=== PATIENT | female | born 1970 | race African-American/Black ===

== ENCOUNTER 2017-12-09 20:40 | Inpatient (IN) | payer MEDICAID ==
[~2017-12-09] VITALS: Ht 160 cm; Wt 63.6 kg
[2017-12-09 21:41] LABS: BASOPHILS % 1.1 % (0.0-2.0); EOSINOPHILS % 1.8 % (0.0-5.0); HEMOGLOBIN. 11.6 g/dL (12.0-16.0); LYMPHOCYTES % 38.5 % (20.0-50.0); MEAN CORPUSCULAR HEMOGLOBIN 29.1 pg (28.0-32.0); MEAN CORPUSCULAR VOLUME 85.4 fL (81.0-99.0); MEAN PLATELET VOLUME 7.3 fl (7.4-10.4); MONOCYTES % 7.3 % (2.0-8.0); NEUTROPHILS % 51.3 % (40.0-76.0); PLATELET 223 x1000/uL (130-400); RED BLOOD CELL COUNT 3.98 mill/uL (4.2-5.4); RED CELL DISTRIBUTION WIDTH 16.6 % (11.6-14.6)
[2017-12-09 21:42] LABS: INR 1.1; PROTHROMBIN TIME 11.2 sec (9.4-11.6)
[2017-12-09 22:02] LABS: CARBON DIOXIDE 29 mEq/L (21-32); CHLORIDE 98 mEq/L (98-107); TROPONIN I < 0.02 ng/mL (0.00-0.04)
[2017-12-09] MEDS ORDERED: POTASSIUM CHLORIDE 20MEQ TABLET SR PO ONE (22:30)
[2017-12-09] MEDS ORDERED: ASPIRIN 325MG EC TABLET PO ONE (22:45)
[2017-12-09] MEDS ORDERED: MORPHINE SULFATE 4 MG/ML CPJ (NOT FOR IM USE) IV ONE (23:30)
[2017-12-10] MEDS ORDERED: ONDANSETRON HCL 4MG/2ML VIAL IV ONE (04:00)
[2017-12-10 08:00] VITALS: BP 168/85
[2017-12-10] MEDS ORDERED: ASPI-1159 PO (08:57)
[2017-12-10] MEDS ORDERED: HYDR100T26 PO (08:57)
[2017-12-10] MEDS ORDERED: AMLO10TA80 PO (08:57)
[2017-12-10] MEDS ORDERED: METO-539 PO (08:57)
[2017-12-10] MEDS ORDERED: CLONIDINE 0.1MG TABLET PO PRN (09:15)
[2017-12-10] MEDS ORDERED: ONDANSETRON HCL 4MG/2ML VIAL IV PRN (09:15)
[2017-12-10] MEDS ORDERED: MORPHINE SULFATE 4 MG/ML CPJ (NOT FOR IM USE) IV PRN (09:15)
[2017-12-10] MEDS: ASPIRIN 81MG TABLET PO SCH (10:14)
[2017-12-10] MEDS: AMLODIPINE 10MG TABLET PO SCH (10:19)
[2017-12-10 10:50] VITALS: BP 168/85
[2017-12-10 12:00] VITALS: BP 138/71
[2017-12-10] MEDS: POTASSIUM CHLORIDE 20MEQ TABLET SR PO SCH (12:38)
[2017-12-10] MEDS: PANTOPRAZOLE 40MG DR TABLET PO SCH (12:38)
[2017-12-10] MEDS: HYDRALAZINE HCL 50MG TABLET PO SCH ×2 (14:13→22:02)
[2017-12-10] MEDS: CLONIDINE 0.1MG TABLET PO SCH ×2 (14:13→22:02)
[2017-12-10] MEDS: HYDROCODONE/ACETAMINOPHEN 5/325MG TABLET PO PRN ×2 (14:26→21:16)
[2017-12-10 16:00] VITALS: BP 124/58
[2017-12-10 20:00] VITALS: BP 113/67
[2017-12-10] MEDS: METOPROLOL TARTRATE 50MG TABLET PO SCH (21:07)
[2017-12-11] VITALS: BP 123/74
[2017-12-11] MEDS: HYDROCODONE/ACETAMINOPHEN 5/325MG TABLET PO PRN ×2 (03:12→09:35)
[2017-12-11 04:00] VITALS: BP 126/66
[2017-12-11] MEDS: PANTOPRAZOLE 40MG DR TABLET PO SCH (07:02)
[2017-12-11] MEDS: CLONIDINE 0.1MG TABLET PO SCH (07:02)
[2017-12-11] MEDS: HYDRALAZINE HCL 50MG TABLET PO SCH (07:02)
[2017-12-11 07:37] VITALS: BP 157/80
[2017-12-11] MEDS: METOPROLOL TARTRATE 50MG TABLET PO SCH (09:00)
[2017-12-11] MEDS: POTASSIUM CHLORIDE 20MEQ TABLET SR PO SCH (09:32)
[2017-12-11] MEDS: AMLODIPINE 10MG TABLET PO SCH (09:33)
[2017-12-11] MEDS: ASPIRIN 81MG TABLET PO SCH (09:33)
[2017-12-11] MEDS ORDERED: REGADENOSON 0.4 MG/5 ML IV NR (11:00)
[2017-12-11 12:00] VITALS: BP 115/59
[2017-12-11] MEDS ORDERED: HYDR-4001 PO (12:05)
[2017-12-11] MEDS ORDERED: CLONIDINE 0.2MG TABLET PO SCH (14:00)
[2017-12-11 14:29] VITALS: BP 115/59
== END 2017-12-11 17:27 | disposition home or self-care (01) | DRG 203 ==
LOC: ER 21:11 → 6WST 22:38 → EDBEDREQ 22:44
PROVIDERS: ADMIT Internal Medicine; ATTEND Internal Medicine
DX: M94.0 Chondrocostal junction syndrome [Tietze] (principal); Z93.0 Tracheostomy status; N18.6 End stage renal disease; I12.0 Hypertensive chronic kidney disease with stage 5 chronic kidney disease or end stage renal disease; R07.89 Other chest pain; I25.2 Old myocardial infarction; K21.9 Gastro-esophageal reflux disease without esophagitis; I25.10 Atherosclerotic heart disease of native coronary artery without angina pectoris; E87.6 Hypokalemia; D63.8 Anemia in other chronic diseases classified elsewhere; Z86.73 Personal history of transient ischemic attack (TIA), and cerebral infarction without residual deficits; Z95.1 Presence of aortocoronary bypass graft; Z99.2 Dependence on renal dialysis
CPT/HCPCS: 36415; 71045; 80048; 80053; 83880; 84484; 85025; 85610; 93005; 93306; 96374; 96375; 99285; J2270; J2405

== ENCOUNTER 2018-10-09 06:48 | Inpatient (IN) | payer MEDICAID ==
[~2018-10-09] VITALS: Ht 160 cm; Wt 80.7 kg
[~2018-10-09 06:48] MED LIST: AMLO10TA80 PO; ASPI-1159 PO; HYDR-4001 PO; HYDR100T26 PO; METO-539 PO
[2018-10-09 07:46] LABS: EOSINOPHILS % 12.8 % (0.0-5.0); HEMATOCRIT. 24.2 % (36.0-48.0); HEMOGLOBIN. 8.1 g/dL (12.0-16.0); LYMPHOCYTES % 25.9 % (20.0-50.0); MEAN CORPUSCULAR HEMOGLOBIN 30.6 pg (28.0-32.0); MEAN PLATELET VOLUME 7.2 fl (7.4-10.4); MONOCYTES % 7.7 % (2.0-8.0); NEUTROPHILS % 52.6 % (40.0-76.0); PLATELET 171 x1000/uL (130-400); RED BLOOD CELL COUNT 2.63 mill/uL (4.2-5.4); RED CELL DISTRIBUTION WIDTH 15.9 % (11.6-14.6)
[2018-10-09 07:54] LABS: CHLORIDE 105 mEq/L (98-107); INR 1.1; PROTHROMBIN TIME 11.1 sec (9.1-11.1)
[2018-10-09] MEDS ORDERED: ASPIRIN 81MG TABLET PO ONE (08:15)
[2018-10-09] MEDS ORDERED: ONDANSETRON HCL 4MG/2ML INJ IV PRN (09:15)
[2018-10-09] MEDS ORDERED: LABETALOL 5MG/ML SYR 20 MG/4 ML SYRINGE IV ONE (09:15)
[2018-10-09] MEDS ORDERED: ACETAMINOPHEN 325MG TABLET PO PRN (09:15)
[2018-10-09] MEDS: NIFEDIPINE XL 60MG TAB PO SCH (09:15)
[2018-10-09] MEDS: LOSARTAN POTASSIUM 100 MG TABLET PO SCH (09:15)
[2018-10-09 09:34] LABS: CREATINE KINASE MB FRACTION 1.4 ng/mL (0.5-3.6)
[2018-10-09] MEDS: SEVELAMER CARBONATE 800 MG TABLET PO SCH ×2 (13:00→18:31)
[2018-10-09] MEDS: HYDROCODONE/ACETAMINOPHEN 5/325MG TABLET PO PRN ×2 (15:30→18:31)
[2018-10-09 17:01] VITALS: BP 156/90
[2018-10-09 17:30] VITALS: BP 156/90
[2018-10-09 20:00] VITALS: BP 219/107
[2018-10-09] MEDS ORDERED: NIFEDIPINE XL 60MG TAB PO NR (21:00)
[2018-10-09] MEDS ORDERED: LOSARTAN POTASSIUM 100 MG TABLET PO NR (21:00)
[2018-10-09] MEDS: METOPROLOL TARTRATE 50MG TABLET PO SCH (21:33)
[2018-10-09] MEDS: DIPHENHYDRAMINE 50MG/ML VIAL IV PRN (21:34)
[2018-10-10] VITALS: BP 160/89
[2018-10-10] MEDS: CLONIDINE 0.1MG TABLET PO PRN (03:28)
[2018-10-10] MEDS: HYDROCODONE/ACETAMINOPHEN 5/325MG TABLET PO PRN ×2 (03:29→14:20)
[2018-10-10 04:00] VITALS: BP 152/75
[2018-10-10 07:39] LABS: BASOPHILS % 1.1 % (0.0-2.0); EOSINOPHILS % 13.4 % (0.0-5.0); HEMATOCRIT. 23.9 % (36.0-48.0); HEMOGLOBIN. 8.1 g/dL (12.0-16.0); LYMPHOCYTES % 32.9 % (20.0-50.0); MEAN CORPUSCULAR VOLUME 91.8 fL (81.0-99.0); MEAN PLATELET VOLUME 7.5 fl (7.4-10.4); MONOCYTES % 8.2 % (2.0-8.0); NEUTROPHILS % 44.4 % (40.0-76.0); PLATELET 155 x1000/uL (130-400); RED CELL DISTRIBUTION WIDTH 16.4 % (11.6-14.6)
[2018-10-10 08:00] VITALS: BP 168/80
[2018-10-10] MEDS: SEVELAMER CARBONATE 800 MG TABLET PO SCH ×3 (08:32→17:53)
[2018-10-10] MEDS: LOSARTAN POTASSIUM 100 MG TABLET PO SCH (08:33)
[2018-10-10] MEDS: METOPROLOL TARTRATE 50MG TABLET PO SCH ×2 (08:33→21:05)
[2018-10-10] MEDS: NIFEDIPINE XL 60MG TAB PO SCH (08:33)
[2018-10-10] MEDS: ASPIRIN 81MG TABLET PO SCH (08:36)
[2018-10-10 12:00] VITALS: BP 170/74
[2018-10-10] MEDS: HYDRALAZINE HCL 50MG TABLET PO SCH ×2 (14:15→21:05)
[2018-10-10 16:00] VITALS: BP 193/85
[2018-10-10] MEDS ORDERED: INFLUENZA VIRUS VACCINE(AFLURIA) 0.5ML SYR IM ONE (16:30)
[2018-10-10] MEDS: DIPHENHYDRAMINE 50MG/ML VIAL IV PRN ×2 (17:53→23:16)
[2018-10-10 20:00] VITALS: BP 165/71
[2018-10-11] VITALS (7 sets, daily range): BP systolic 148–208; BP diastolic 72–87
[2018-10-11] MEDS: HYDROCODONE/ACETAMINOPHEN 5/325MG TABLET PO PRN ×3 (03:17→21:07)
[2018-10-11] MEDS: HYDRALAZINE HCL 50MG TABLET PO SCH ×2 (05:01→12:35)
[2018-10-11] MEDS: DIPHENHYDRAMINE 50MG/ML VIAL IV PRN ×2 (06:51→21:08)
[2018-10-11] MEDS: METOPROLOL TARTRATE 50MG TABLET PO SCH ×2 (08:36→21:07)
[2018-10-11] MEDS: SEVELAMER CARBONATE 800 MG TABLET PO SCH ×3 (08:36→17:43)
[2018-10-11] MEDS: NIFEDIPINE XL 60MG TAB PO SCH ×2 (08:36→21:06)
[2018-10-11] MEDS: ASPIRIN 81MG TABLET PO SCH (08:37)
[2018-10-11] MEDS: LOSARTAN POTASSIUM 100 MG TABLET PO SCH (08:38)
[2018-10-11] MEDS: HYDRALAZINE HCL 100MG TABLET PO SCH ×2 (17:43→21:08)
[2018-10-12 04:00] VITALS: BP 198/78
[2018-10-12] MEDS: HYDROCODONE/ACETAMINOPHEN 5/325MG TABLET PO PRN ×2 (04:26→18:10)
[2018-10-12] MEDS: DIPHENHYDRAMINE 50MG/ML VIAL IV PRN ×4 (04:26→22:55)
[2018-10-12] MEDS: CLONIDINE 0.1MG TABLET PO PRN ×2 (04:27→18:14)
[2018-10-12 05:28] VITALS: BP 150/70
[2018-10-12] MEDS: HYDRALAZINE HCL 100MG TABLET PO SCH ×3 (06:45→22:47)
[2018-10-12 08:00] VITALS: BP 168/70
[2018-10-12] MEDS: METOPROLOL TARTRATE 50MG TABLET PO SCH ×2 (09:00→21:12)
[2018-10-12] MEDS: NIFEDIPINE XL 60MG TAB PO SCH ×2 (09:32→21:12)
[2018-10-12] MEDS: SEVELAMER CARBONATE 800 MG TABLET PO SCH ×3 (09:32→18:13)
[2018-10-12] MEDS: ASPIRIN 81MG TABLET PO SCH (09:32)
[2018-10-12] MEDS: LOSARTAN POTASSIUM 100 MG TABLET PO SCH (09:41)
[2018-10-12] MEDS: CLONIDINE 0.1MG TABLET PO SCH ×3 (09:41→22:48)
[2018-10-12 09:55] LABS: EOSINOPHILS % 10.6 % (0.0-5.0); HEMATOCRIT. 23.4 % (36.0-48.0); HEMOGLOBIN. 7.8 g/dL (12.0-16.0); LYMPHOCYTES % 24.6 % (20.0-50.0); MEAN CORPUSCULAR HEMOGLOBIN 30.7 pg (28.0-32.0); MEAN CORPUSCULAR VOLUME 92.4 fL (81.0-99.0); MEAN PLATELET VOLUME 7.9 fl (7.4-10.4); MONOCYTES % 7.5 % (2.0-8.0); NEUTROPHILS % 56.3 % (40.0-76.0); PLATELET 133 x1000/uL (130-400); RED BLOOD CELL COUNT 2.53 mill/uL (4.2-5.4); RED CELL DISTRIBUTION WIDTH 16.8 % (11.6-14.6)
[2018-10-12 16:00] VITALS: BP 172/70
[2018-10-12 20:00] VITALS: BP 141/60
[2018-10-13] VITALS: BP 171/77
[2018-10-13] MEDS: CLONIDINE 0.1MG TABLET PO PRN (00:56)
[2018-10-13 04:00] VITALS: BP 157/68
[2018-10-13] MEDS: DIPHENHYDRAMINE 50MG/ML VIAL IV PRN ×3 (05:07→20:21)
[2018-10-13] MEDS: HYDRALAZINE HCL 100MG TABLET PO SCH ×3 (06:38→22:00)
[2018-10-13] MEDS: CLONIDINE 0.1MG TABLET PO SCH ×3 (06:38→22:00)
[2018-10-13] MEDS: HYDROCODONE/ACETAMINOPHEN 5/325MG TABLET PO PRN ×2 (06:38→20:21)
[2018-10-13 07:22] LABS: BASOPHILS % 0.7 % (0.0-2.0); EOSINOPHILS % 12.8 % (0.0-5.0); HEMATOCRIT. 22.9 % (36.0-48.0); HEMOGLOBIN. 7.7 g/dL (12.0-16.0); LYMPHOCYTES % 30.8 % (20.0-50.0); MEAN CORPUSCULAR HEMOGLOBIN 30.7 pg (28.0-32.0); MEAN PLATELET VOLUME 7.6 fl (7.4-10.4); MONOCYTES % 7.8 % (2.0-8.0); NEUTROPHILS % 47.9 % (40.0-76.0); PLATELET 123 x1000/uL (130-400); RED BLOOD CELL COUNT 2.51 mill/uL (4.2-5.4); RED CELL DISTRIBUTION WIDTH 16.9 % (11.6-14.6)
[2018-10-13 08:00] VITALS: BP 142/59
[2018-10-13] MEDS: SEVELAMER CARBONATE 800 MG TABLET PO SCH ×3 (09:34→18:15)
[2018-10-13] MEDS: LOSARTAN POTASSIUM 100 MG TABLET PO SCH (09:34)
[2018-10-13] MEDS: ASPIRIN 81MG TABLET PO SCH (09:35)
[2018-10-13] MEDS: NIFEDIPINE XL 60MG TAB PO SCH ×2 (09:35→21:00)
[2018-10-13] MEDS: METOPROLOL TARTRATE 50MG TABLET PO SCH ×2 (09:35→21:00)
[2018-10-13 12:00] VITALS: BP 141/60
[2018-10-13 16:00] VITALS: BP 140/70
[2018-10-13 20:00] VITALS: BP 153/66
[2018-10-14] VITALS (7 sets, daily range): BP systolic 155–203; BP diastolic 68–78
[2018-10-14] MEDS: CLONIDINE 0.1MG TABLET PO PRN ×4 (03:09→22:21)
[2018-10-14] MEDS: DIPHENHYDRAMINE 50MG/ML VIAL IV PRN ×3 (03:09→20:08)
[2018-10-14] MEDS: HYDRALAZINE HCL 100MG TABLET PO SCH ×3 (05:17→22:20)
[2018-10-14] MEDS: CLONIDINE 0.1MG TABLET PO SCH (05:18)
[2018-10-14 07:33] LABS: BASOPHILS % 1.1 % (0.0-2.0); EOSINOPHILS % 12.6 % (0.0-5.0); HEMATOCRIT. 24.1 % (36.0-48.0); HEMOGLOBIN. 8.3 g/dL (12.0-16.0); LYMPHOCYTES % 25.8 % (20.0-50.0); MEAN CORPUSCULAR HEMOGLOBIN 31.5 pg (28.0-32.0); MEAN CORPUSCULAR VOLUME 91.7 fL (81.0-99.0); MEAN PLATELET VOLUME 7.8 fl (7.4-10.4); MONOCYTES % 9.2 % (2.0-8.0); NEUTROPHILS % 51.3 % (40.0-76.0); PLATELET 117 x1000/uL (130-400); RED BLOOD CELL COUNT 2.63 mill/uL (4.2-5.4); RED CELL DISTRIBUTION WIDTH 16.9 % (11.6-14.6)
[2018-10-14] MEDS: SEVELAMER CARBONATE 800 MG TABLET PO SCH ×3 (08:22→18:32)
[2018-10-14] MEDS: METOPROLOL TARTRATE 50MG TABLET PO SCH ×3 (08:22→20:33)
[2018-10-14] MEDS: LOSARTAN POTASSIUM 100 MG TABLET PO SCH (08:23)
[2018-10-14] MEDS: ASPIRIN 81MG TABLET PO SCH (08:23)
[2018-10-14] MEDS: NIFEDIPINE XL 60MG TAB PO SCH ×2 (08:24→20:32)
[2018-10-14] MEDS: HYDROCODONE/ACETAMINOPHEN 5/325MG TABLET PO PRN (11:50)
[2018-10-14] MEDS: CLONIDINE 0.2MG TABLET PO SCH ×2 (14:10→22:30)
[2018-10-15] VITALS: BP 176/77
[2018-10-15] MEDS: HYDROCODONE/ACETAMINOPHEN 5/325MG TABLET PO PRN ×2 (03:19→14:01)
[2018-10-15] MEDS: CLONIDINE 0.1MG TABLET PO PRN (03:25)
[2018-10-15] MEDS: DIPHENHYDRAMINE 50MG/ML VIAL IV PRN ×4 (03:26→20:24)
[2018-10-15 04:48] VITALS: BP 203/94
[2018-10-15] MEDS: CLONIDINE 0.2MG TABLET PO SCH ×3 (05:45→22:32)
[2018-10-15] MEDS: HYDRALAZINE HCL 100MG TABLET PO SCH ×3 (05:45→22:32)
[2018-10-15 07:22] LABS: BASOPHILS % 1.3 % (0.0-2.0); EOSINOPHILS % 11.9 % (0.0-5.0); HEMATOCRIT. 25.5 % (36.0-48.0); HEMOGLOBIN. 8.5 g/dL (12.0-16.0); LYMPHOCYTES % 28.1 % (20.0-50.0); MEAN CORPUSCULAR HEMOGLOBIN 30.6 pg (28.0-32.0); MEAN CORPUSCULAR VOLUME 91.5 fL (81.0-99.0); MONOCYTES % 8.1 % (2.0-8.0); NEUTROPHILS % 50.6 % (40.0-76.0); PLATELET 129 x1000/uL (130-400); RED BLOOD CELL COUNT 2.79 mill/uL (4.2-5.4); RED CELL DISTRIBUTION WIDTH 16.8 % (11.6-14.6)
[2018-10-15] MEDS: SEVELAMER CARBONATE 800 MG TABLET PO SCH ×3 (08:10→18:06)
[2018-10-15] MEDS: NIFEDIPINE XL 60MG TAB PO SCH ×2 (09:00→20:19)
[2018-10-15] MEDS: METOPROLOL TARTRATE 50MG TABLET PO SCH ×2 (09:00→20:20)
[2018-10-15] MEDS: ASPIRIN 81MG TABLET PO SCH (09:00)
[2018-10-15] MEDS: LOSARTAN POTASSIUM 100 MG TABLET PO SCH (09:00)
[2018-10-15 12:00] VITALS: BP 111/69
[2018-10-15] MEDS: MINOXIDIL 2.5MG TABLET PO SCH ×2 (12:00→20:19)
[2018-10-15 16:00] VITALS: BP 139/59
[2018-10-15 20:00] VITALS: BP 186/75
[2018-10-15 22:30] VITALS: BP 174/75
[2018-10-16] VITALS: BP 185/71
[2018-10-16] MEDS: DIPHENHYDRAMINE 50MG/ML VIAL IV PRN ×2 (03:19→10:07)
[2018-10-16] MEDS: CLONIDINE 0.1MG TABLET PO PRN (03:19)
[2018-10-16] MEDS: HYDROCODONE/ACETAMINOPHEN 5/325MG TABLET PO PRN (03:24)
[2018-10-16 04:00] VITALS: BP 146/60
[2018-10-16] MEDS: CLONIDINE 0.2MG TABLET PO SCH (05:34)
[2018-10-16] MEDS: HYDRALAZINE HCL 100MG TABLET PO SCH (05:34)
[2018-10-16 08:00] VITALS: BP 113/65
[2018-10-16] MEDS: METOPROLOL TARTRATE 50MG TABLET PO SCH (08:55)
[2018-10-16] MEDS: MINOXIDIL 2.5MG TABLET PO SCH (08:59)
[2018-10-16] MEDS: LOSARTAN POTASSIUM 100 MG TABLET PO SCH (08:59)
[2018-10-16] MEDS: SEVELAMER CARBONATE 800 MG TABLET PO SCH (08:59)
[2018-10-16] MEDS: NIFEDIPINE XL 60MG TAB PO SCH (08:59)
[2018-10-16] MEDS: ASPIRIN 81MG TABLET PO SCH (08:59)
[2018-10-16 11:25] VITALS: BP 141/79
[2018-10-20] MEDS ORDERED: COR12 PO (09:24)
== END 2018-10-16 12:05 | disposition home or self-care (01) | DRG 194 ==
LOC: ER 06:48 → 7WST 08:40 → EDBEDREQ 08:42 → EDBEDREQTM 08:42 → ENRESERV 15:35 → 7WST 22:28
PROVIDERS: ADMIT Internal Medicine Nephrology; ATTEND Internal Medicine Nephrology
PROC: 5A1D70Z Performance of Urinary Filtration, Intermittent, Less than 6 Hours Per Day (ICD-10-PCS; principal; 2018-10-13)
PROC: 5A1D70Z Performance of Urinary Filtration, Intermittent, Less than 6 Hours Per Day (ICD-10-PCS; 2018-10-15)
DX: I13.2 Hypertensive heart and chronic kidney disease with heart failure and with stage 5 chronic kidney disease, or end stage renal disease (principal); E11.22 Type 2 diabetes mellitus with diabetic chronic kidney disease; N18.6 End stage renal disease; I50.43 Acute on chronic combined systolic (congestive) and diastolic (congestive) heart failure; E44.1 Mild protein-calorie malnutrition; I16.0 Hypertensive urgency; D63.1 Anemia in chronic kidney disease; E87.6 Hypokalemia; G89.29 Other chronic pain; I49.3 Ventricular premature depolarization; Z82.49 Family history of ischemic heart disease and other diseases of the circulatory system; I69.354 Hemiplegia and hemiparesis following cerebral infarction affecting left non-dominant side; Z99.2 Dependence on renal dialysis; Z86.79 Personal history of other diseases of the circulatory system; Z95.1 Presence of aortocoronary bypass graft; Z95.3 Presence of xenogenic heart valve; Z68.31 Body mass index [BMI] 31.0-31.9, adult; Z79.899 Other long term (current) drug therapy; Z79.82 Long term (current) use of aspirin
CPT/HCPCS: 36415; 71045; 80048; 80061; 82550; 82553; 82728; 83540; 83550; 83735; 83880; 84443; 84484; 93005; 93306; 97162; 99285; J1200; J3490; J7030

== ENCOUNTER 2018-11-13 09:48 | Emergency (ER) | payer MEDICAID ==
[~2018-11-13] VITALS: Ht 160 cm; Wt 72.6 kg
[~2018-11-13 09:48] MED LIST changes: +COR12 PO
[2018-11-13] MEDS ORDERED: ONDANSETRON HCL 4MG/2ML INJ IV STA (10:17)
[2018-11-13] MEDS ORDERED: FENTANYL CITRATE/PF 50MCG/ML 2ML VIAL IV ONE ×2 (10:30→15:30)
[2018-11-13] MEDS ORDERED: NICARDIPINE 40MG/200ML PREMIX 200 ML IV PRN (10:30)
[2018-11-13] MEDS ORDERED: NITROGLYCERIN 0.4MG TABLET SL SL PRN (10:30)
[2018-11-13 11:32] LABS: BASOPHILS % 1.3 % (0.0-2.0); EOSINOPHILS % 4.7 % (0.0-5.0); HEMATOCRIT. 29.3 % (36.0-48.0); HEMOGLOBIN. 9.7 g/dL (12.0-16.0); LYMPHOCYTES % 26.7 % (20.0-50.0); MEAN CORPUSCULAR HEMOGLOBIN 30.4 pg (28.0-32.0); MEAN PLATELET VOLUME 7.5 fl (7.4-10.4); MONOCYTES % 5.4 % (2.0-8.0); NEUTROPHILS % 61.9 % (40.0-76.0); PLATELET 155 x1000/uL (130-400); RED BLOOD CELL COUNT 3.18 mill/uL (4.2-5.4); RED CELL DISTRIBUTION WIDTH 16.2 % (11.6-14.6)
[2018-11-13 11:38] LABS: CHLORIDE 108 mEq/L (98-107)
[2018-11-13 12:19] LABS: HCG SCREEN INDETERMINATE
[2018-11-13] MEDS ORDERED: IOHEXOL-350 100 ML BOTTLE ONE (13:47)
[2018-11-13] MEDS ORDERED: ESMOLOL 2500MG PREMIX 250 ML IV NR ×2 (14:00)
[2018-11-13] MEDS ORDERED: FENTANYL CITRATE/PF 50MCG/ML 2ML VIAL IV NR (15:15)
[2018-11-13] MEDS ORDERED: ESMOLOL 2500MG PREMIX 250 ML IV ONE (16:30)
[2018-11-13 16:50] VITALS: BP 138/78
== END 2018-11-13 17:36 | disposition short-term general hospital (02) ==
LOC: ER 09:48 → CANBEDREQ 11-14 00:19
DX: I71.00 Dissection of unspecified site of aorta (principal); R07.89 Other chest pain; I16.0 Hypertensive urgency; I45.81 Long QT syndrome; I25.10 Atherosclerotic heart disease of native coronary artery without angina pectoris; Z86.73 Personal history of transient ischemic attack (TIA), and cerebral infarction without residual deficits; Z79.82 Long term (current) use of aspirin; Z79.899 Other long term (current) drug therapy
CPT/HCPCS: 36415; 71045; 71275; 74174; 80053; 81025; 83735; 83880; 84484; 84703; 85025; 93005; 96374; 96375; 96376; 99285; J2405; J3010; J3490; Q9967

== ENCOUNTER 2019-05-16 23:44 | Inpatient (IN) | payer MEDICAID, MEDICARE ==
[~2019-05-16] VITALS: Ht 160 cm; Wt 78.5 kg
[~2019-05-16 23:44] MED LIST changes: -ASPI-1159 PO; +ASPI-1393 PO
[2019-05-17] MEDS ORDERED: MORPHINE SULFATE 4 MG/ML CPJ (NOT FOR IM USE) IV STA (01:14)
[2019-05-17] MEDS ORDERED: ONDANSETRON HCL 4MG/2ML INJ IV STA (01:14)
[2019-05-17] MEDS ORDERED: FAMOTIDINE 20MG/2ML VIAL IV STA (01:14)
[2019-05-17 02:08] LABS: BASOPHILS % 0.6 % (0.0-2.0); EOSINOPHILS % 7.5 % (0.0-5.0); HEMATOCRIT. 31.5 % (36.0-48.0); HEMOGLOBIN. 10.7 g/dL (12.0-16.0); LYMPHOCYTES % 32.6 % (20.0-50.0); MEAN CORPUSCULAR HEMOGLOBIN 32.1 pg (28.0-32.0); MEAN CORPUSCULAR VOLUME 94.6 fL (81.0-99.0); MEAN PLATELET VOLUME 7.3 fl (7.4-10.4); MONOCYTES % 9.5 % (2.0-8.0); NEUTROPHILS % 49.8 % (40.0-76.0); PLATELET 183 x1000/uL (130-400); RED BLOOD CELL COUNT 3.33 mill/uL (4.2-5.4)
[2019-05-17 02:10] LABS: CHLORIDE 104 mEq/L (98-107)
[2019-05-17 02:14] LABS: HCG SCREEN NEGATIVE
[2019-05-17] MEDS ORDERED: FENTANYL CITRATE/PF 50MCG/ML 2ML VIAL IV ONE (04:45)
[2019-05-17 08:00] VITALS: BP 118/58
[2019-05-17] MEDS ORDERED: ZOLPIDEM TARTRATE 5MG TABLET PO PRN (08:15)
[2019-05-17] MEDS ORDERED: DOCUSATE SODIUM 100MG CAPSULE PO PRN (08:15)
[2019-05-17] MEDS ORDERED: MAGNESIUM/ALUMINUM HYDROXIDE/SIMETHICONE 30ML UDC PO PRN (08:15)
[2019-05-17] MEDS ORDERED: CLONIDINE 0.1MG TABLET PO PRN (08:15)
[2019-05-17] MEDS ORDERED: NITROGLYCERIN 0.4MG TABLET SL SL PRN (08:15)
[2019-05-17] MEDS ORDERED: GUAIFENESIN 200MG/10ML SUGAR FREE UDC PO PRN (08:15)
[2019-05-17] MEDS ORDERED: IPRATROPIUM/ALBUTEROL 0.5-3(2.5)MG/3ML NEB INH PRN (08:15)
[2019-05-17] MEDS ORDERED: ONDANSETRON HCL 4MG/2ML INJ IV PRN (08:15)
[2019-05-17] MEDS ORDERED: ACETAMINOPHEN 325MG TABLET PO PRN (08:15)
[2019-05-17] MEDS: SEVELAMER CARBONATE 800 MG TABLET PO SCH ×3 (08:24→19:02)
[2019-05-17 08:54] VITALS: BP 118/58
[2019-05-17] MEDS: AMLODIPINE 10MG TABLET PO SCH (09:00)
[2019-05-17] MEDS ORDERED: AMLODIPINE 10MG TABLET PO SCH (09:00)
[2019-05-17] MEDS: METOPROLOL TARTRATE 25MG TABLET PO SCH ×2 (09:00→22:45)
[2019-05-17] MEDS: FOLIC ACID/VITAMIN B COMP W-C TABLET PO SCH (10:01)
[2019-05-17] MEDS: SUCRALFATE 1 G/10 ML UDC PO SCH ×4 (10:02→22:44)
[2019-05-17] MEDS: FAMOTIDINE 20MG TABLET PO SCH ×2 (10:03→22:45)
[2019-05-17] MEDS: TRAMADOL 50MG TABLET PO PRN ×2 (10:11→22:44)
[2019-05-17 12:00] VITALS: BP 126/54
[2019-05-17] MEDS: ENOXAPARIN 40MG/0.4ML SYR SUBCUT SCH (12:44)
[2019-05-17] MEDS: HYDRALAZINE HCL 50MG TABLET PO SCH ×2 (14:19→22:45)
[2019-05-17 16:00] VITALS: BP 99/47
[2019-05-17 18:36] VITALS: BP 109/59
[2019-05-17] MEDS: DIPHENHYDRAMINE 50MG/ML VIAL IV PRN (19:02)
[2019-05-17 20:00] VITALS: BP 135/65
[2019-05-17 21:00] LABS: CREATINE KINASE MB FRACTION 1.2 ng/mL (0.5-3.6)
[2019-05-18] VITALS: BP 129/64
[2019-05-18 00:21] LABS: CREATINE KINASE MB FRACTION 1.2 ng/mL (0.5-3.6)
[2019-05-18 04:00] VITALS: BP 135/57
[2019-05-18 05:59] LABS: PHOSPHORUS 5.3 mg/dL (2.5-4.9)
[2019-05-18] MEDS: HYDRALAZINE HCL 50MG TABLET PO SCH ×3 (06:00→21:20)
[2019-05-18 06:07] LABS: BASOPHILS % 0.6 % (0.0-2.0); EOSINOPHILS % 11.2 % (0.0-5.0); HEMATOCRIT. 29.3 % (36.0-48.0); LYMPHOCYTES % 24.1 % (20.0-50.0); MEAN CORPUSCULAR HEMOGLOBIN 32.1 pg (28.0-32.0); MEAN CORPUSCULAR VOLUME 94.1 fL (81.0-99.0); MEAN PLATELET VOLUME 7.3 fl (7.4-10.4); MONOCYTES % 6.9 % (2.0-8.0); NEUTROPHILS % 57.2 % (40.0-76.0); PLATELET 173 x1000/uL (130-400); RED BLOOD CELL COUNT 3.12 mill/uL (4.2-5.4)
[2019-05-18 08:00] VITALS: BP 126/68
[2019-05-18] MEDS: METOPROLOL TARTRATE 25MG TABLET PO SCH ×2 (08:48→21:20)
[2019-05-18] MEDS: AMLODIPINE 10MG TABLET PO SCH (08:48)
[2019-05-18] MEDS: FAMOTIDINE 20MG TABLET PO SCH (08:49)
[2019-05-18] MEDS: SEVELAMER CARBONATE 800 MG TABLET PO SCH ×3 (08:49→19:22)
[2019-05-18] MEDS: SUCRALFATE 1 G/10 ML UDC PO SCH ×4 (08:49→21:20)
[2019-05-18] MEDS: FOLIC ACID/VITAMIN B COMP W-C TABLET PO SCH (08:49)
[2019-05-18] MEDS: DIPHENHYDRAMINE 50MG/ML VIAL IV PRN ×3 (08:53→21:52)
[2019-05-18 12:00] VITALS: BP 117/61
[2019-05-18] MEDS: ENOXAPARIN 40MG/0.4ML SYR SUBCUT SCH (12:45)
[2019-05-18 16:00] VITALS: BP 118/74
[2019-05-18 20:00] VITALS: BP 131/65
[2019-05-19] VITALS: BP 139/65
[2019-05-19] MEDS: DIPHENHYDRAMINE 50MG/ML VIAL IV PRN ×2 (03:53→09:57)
[2019-05-19 04:00] VITALS: BP 128/65
[2019-05-19] MEDS: HYDRALAZINE HCL 50MG TABLET PO SCH (05:30)
[2019-05-19 06:13] LABS: BASOPHILS % 0.7 % (0.0-2.0); EOSINOPHILS % 9.3 % (0.0-5.0); HEMATOCRIT. 30.2 % (36.0-48.0); HEMOGLOBIN. 10.3 g/dL (12.0-16.0); LYMPHOCYTES % 31.3 % (20.0-50.0); MEAN CORPUSCULAR HEMOGLOBIN 31.8 pg (28.0-32.0); MEAN CORPUSCULAR VOLUME 93.6 fL (81.0-99.0); MEAN PLATELET VOLUME 7.6 fl (7.4-10.4); MONOCYTES % 8.6 % (2.0-8.0); NEUTROPHILS % 50.1 % (40.0-76.0); PLATELET 172 x1000/uL (130-400); RED BLOOD CELL COUNT 3.22 mill/uL (4.2-5.4); RED CELL DISTRIBUTION WIDTH 14.9 % (11.6-14.6)
[2019-05-19 08:00] VITALS: BP 108/56
[2019-05-19] MEDS: AMLODIPINE 10MG TABLET PO SCH (09:00)
[2019-05-19] MEDS: METOPROLOL TARTRATE 25MG TABLET PO SCH (09:00)
[2019-05-19] MEDS ORDERED: FAMOTIDINE 20MG TABLET PO SCH (09:00)
[2019-05-19] MEDS: SEVELAMER CARBONATE 800 MG TABLET PO SCH (09:53)
[2019-05-19] MEDS: FOLIC ACID/VITAMIN B COMP W-C TABLET PO SCH (09:56)
[2019-05-19] MEDS: SUCRALFATE 1 G/10 ML UDC PO SCH (09:57)
[2019-05-19 12:00] VITALS: BP 143/78
[2019-05-19] MEDS ORDERED: ENOXAPARIN 30MG/0.3ML SYR SUBCUT SCH (12:00)
[2019-05-19] MEDS ORDERED: PANT40SU MT (12:51)
[2019-05-19] MEDS ORDERED: SUCR1TAB30 MT (12:52)
[2019-05-19 12:54] VITALS: BP 143/78
== END 2019-05-19 13:55 | disposition home health service (06) | DRG 391 ==
LOC: ER 23:44 → EDBEDREQ 05-17 01:23 → 7WST 05-17 03:50 → EDBEDREQTM 05-17 03:53 → EDBEDREQ 05-17 03:53 → ENRESERV 05-17 07:29 → 7WST 05-18 11:36
PROVIDERS: ADMIT Internal Medicine; ATTEND Internal Medicine
PROC: 5A1D70Z Performance of Urinary Filtration, Intermittent, Less than 6 Hours Per Day (ICD-10-PCS; principal; 2019-05-18)
DX: K29.70 Gastritis, unspecified, without bleeding (principal); N18.6 End stage renal disease; I13.2 Hypertensive heart and chronic kidney disease with heart failure and with stage 5 chronic kidney disease, or end stage renal disease; I50.32 Chronic diastolic (congestive) heart failure; D63.8 Anemia in other chronic diseases classified elsewhere; N20.0 Calculus of kidney; K57.90 Diverticulosis of intestine, part unspecified, without perforation or abscess without bleeding; I25.10 Atherosclerotic heart disease of native coronary artery without angina pectoris; Z99.2 Dependence on renal dialysis; Z86.73 Personal history of transient ischemic attack (TIA), and cerebral infarction without residual deficits; Z79.899 Other long term (current) drug therapy; Z95.1 Presence of aortocoronary bypass graft; Z88.6 Allergy status to analgesic agent
CPT/HCPCS: 36415; 71045; 74176; 80048; 80061; 82550; 82553; 83036; 83605; 84100; 84484; 84703; 93005; 93970; 96374; 96375; 97166; 99285; J1200; J1650; J2270; J2405; J3010; J3490

== ENCOUNTER 2019-06-18 21:54 | Inpatient (IN) | payer MEDICARE, MEDICAID ==
[~2019-06-18] VITALS: Ht 160 cm; Wt 84.8 kg
[~2019-06-18 21:54] MED LIST changes: +PANT40SU MT; +SUCR1TAB30 MT
[2019-06-18] MEDS ORDERED: ONDANSETRON HCL 4MG/2ML INJ IV STA (23:35)
[2019-06-18 23:59] LABS: BASOPHILS % 1.1 % (0.0-2.0); EOSINOPHILS % 4.4 % (0.0-5.0); HEMATOCRIT. 31.9 % (36.0-48.0); HEMOGLOBIN. 10.7 g/dL (12.0-16.0); LYMPHOCYTES % 27.8 % (20.0-50.0); MEAN CORPUSCULAR HEMOGLOBIN 31.6 pg (28.0-32.0); MEAN CORPUSCULAR VOLUME 93.8 fL (81.0-99.0); MEAN PLATELET VOLUME 7.2 fl (7.4-10.4); MONOCYTES % 9.8 % (2.0-8.0); NEUTROPHILS % 56.9 % (40.0-76.0); PLATELET 190 x1000/uL (130-400); RED CELL DISTRIBUTION WIDTH 14.7 % (11.6-14.6)
[2019-06-19 00:02] LABS: CHLORIDE 101 mEq/L (98-107)
[2019-06-19] MEDS ORDERED: ACETAMINOPHEN 325MG TABLET PO ONE (00:15)
[2019-06-19] MEDS ORDERED: MORPHINE SULFATE 2 MG/ML CPJ (NOT FOR IM USE) IV ONE (01:30)
[2019-06-19 02:48] LABS: CLARITY URINE CLOUDY (CLEAR); COLOR URINE YELLOW (YELLOW); KETONES URINE TRACE (NEGATIVE); LEUKOCYTE ESTERASE URINE 2+ (NEGATIVE); NITRITE URINE NEGATIVE (NEGATIVE); OCCULT BLOOD URINE NEGATIVE (NEGATIVE); PH URINE 6.5 (4.5-8.0); PROTEIN URINE TRACE (NEGATIVE); SPECIFIC GRAVITY URINE 1.018 (1.005-1.030); UROBILINOGEN URINE 0.2 E.U./dL (0.2-1.0)
[2019-06-19] MEDS ORDERED: MORPHINE SULFATE 4 MG/ML CPJ (NOT FOR IM USE) IV ONE (05:00)
[2019-06-19 10:00] VITALS: BP 125/58
[2019-06-19] MEDS ORDERED: HYDROCODONE/ACETAMINOPHEN 5/325MG TABLET PO PRN (11:45)
[2019-06-19] MEDS ORDERED: ACETAMINOPHEN 325MG TABLET PO PRN (11:45)
[2019-06-19] MEDS ORDERED: CLONIDINE 0.1MG TABLET PO PRN (11:45)
[2019-06-19 12:00] VITALS: BP 147/79
[2019-06-19] MEDS ORDERED: POTASSIUM CHLORIDE 20MEQ TABLET SR PO SCH (12:00)
[2019-06-19] MEDS: ONDANSETRON HCL 4MG/2ML INJ IV PRN (12:27)
[2019-06-19] MEDS: MORPHINE SULFATE 2 MG/ML CPJ (NOT FOR IM USE) IV PRN ×2 (12:44→20:37)
[2019-06-19 15:58] VITALS: BP 165/88
[2019-06-19 18:00] VITALS: BP 165/88
[2019-06-19] MEDS: CEFTRIAXONE 1 G PREMIX 50 ML IV SCH (18:34)
[2019-06-19] MEDS ORDERED: METOCLOPRAMIDE HCL 10MG/2ML VIAL IV PRN (19:30)
[2019-06-19] MEDS ORDERED: DIPHENHYDRAMINE 25MG CAPSULE PO PRN (19:30)
[2019-06-19 20:00] VITALS: BP 156/75
[2019-06-19] MEDS: ENOXAPARIN 30MG/0.3ML SYR SUBCUT SCH (20:28)
[2019-06-20] VITALS: BP 128/66
[2019-06-20] MEDS: ONDANSETRON HCL 4MG/2ML INJ IV PRN (03:54)
[2019-06-20] MEDS: MORPHINE SULFATE 2 MG/ML CPJ (NOT FOR IM USE) IV PRN ×3 (03:54→20:44)
[2019-06-20 04:00] VITALS: BP 159/79
[2019-06-20 06:27] LABS: BASOPHILS % 0.7 % (0.0-2.0); EOSINOPHILS % 6.4 % (0.0-5.0); HEMATOCRIT. 32.9 % (36.0-48.0); LYMPHOCYTES % 36.3 % (20.0-50.0); MEAN CORPUSCULAR HEMOGLOBIN 31.7 pg (28.0-32.0); MEAN PLATELET VOLUME 7.7 fl (7.4-10.4); MONOCYTES % 10.8 % (2.0-8.0); NEUTROPHILS % 45.8 % (40.0-76.0); PLATELET 199 x1000/uL (130-400); RED BLOOD CELL COUNT 3.47 mill/uL (4.2-5.4); RED CELL DISTRIBUTION WIDTH 14.7 % (11.6-14.6)
[2019-06-20 08:00] VITALS: BP 112/70
[2019-06-20] MEDS: CEFTRIAXONE 1 G PREMIX 50 ML IV SCH (09:03)
[2019-06-20] MEDS ORDERED: POTASSIUM CHLORIDE 20MEQ TABLET SR PO SCH (11:00)
[2019-06-20 12:15] VITALS: BP 126/79
[2019-06-20 16:09] VITALS: BP 116/84
[2019-06-20 20:00] VITALS: BP 136/65
[2019-06-20] MEDS: ENOXAPARIN 30MG/0.3ML SYR SUBCUT SCH (20:42)
[2019-06-21] VITALS: BP 150/70
[2019-06-21] MEDS: MORPHINE SULFATE 2 MG/ML CPJ (NOT FOR IM USE) IV PRN ×2 (00:58→09:16)
[2019-06-21 04:00] VITALS: BP 133/72
[2019-06-21 08:00] VITALS: BP 163/83
[2019-06-21] MEDS: CEFTRIAXONE 1 G PREMIX 50 ML IV SCH (10:05)
[2019-06-21 12:00] VITALS: BP 130/64
[2019-06-21 16:00] VITALS: BP 141/63
[2019-06-21] MEDS ORDERED: HYDROCODONE/ACETAMINOPHEN 10/325MG TABLET PO NR (16:15)
[2019-06-21] MEDS: ONDANSETRON HCL 4MG/2ML INJ IV PRN (16:24)
[2019-06-21 16:51] VITALS: BP 141/63
== END 2019-06-21 18:45 | disposition home or self-care (01) | DRG 689 ==
LOC: ER 21:54 → 6WST 06-19 04:48 → ENRESERV 06-19 06:59
PROVIDERS: ADMIT Internal Medicine; ATTEND Internal Medicine
PROC: 5A1D70Z Performance of Urinary Filtration, Intermittent, Less than 6 Hours Per Day (ICD-10-PCS; principal; 2019-06-21)
DX: N39.0 Urinary tract infection, site not specified (principal); N18.6 End stage renal disease; I12.0 Hypertensive chronic kidney disease with stage 5 chronic kidney disease or end stage renal disease; I69.351 Hemiplegia and hemiparesis following cerebral infarction affecting right dominant side; J44.9 Chronic obstructive pulmonary disease, unspecified; I10 Essential (primary) hypertension; D63.8 Anemia in other chronic diseases classified elsewhere; E87.6 Hypokalemia; G89.29 Other chronic pain; R10.32 Left lower quadrant pain; Z95.2 Presence of prosthetic heart valve; Z99.2 Dependence on renal dialysis; Z88.6 Allergy status to analgesic agent; Z79.1 Long term (current) use of non-steroidal anti-inflammatories (NSAID); Z79.82 Long term (current) use of aspirin; Z79.899 Other long term (current) drug therapy; Z95.1 Presence of aortocoronary bypass graft; Z91.15 Patient's noncompliance with renal dialysis
CPT/HCPCS: 36415; 74176; 80048; 93970; 96374; 96375; 99285; J0696; J1650; J2270; J2405; J2765; J7040; Q0163

== ENCOUNTER 2019-10-01 20:51 | Inpatient (IN) | payer MEDICARE, MEDICAID ==
[~2019-10-01] VITALS: Ht 165.1 cm; Wt 86.0 kg
[2019-10-01] MEDS ORDERED: ONDANSETRON HCL 4MG/2ML INJ IV STA (21:16)
[2019-10-01] MEDS ORDERED: SODIUM CHLORIDE 0.9% 1,000 ML IV ONE (21:16)
[2019-10-01] MEDS ORDERED: MORPHINE SULFATE 4 MG/ML CPJ (NOT FOR IM USE) IV ONE (21:45)
[2019-10-01 21:46] LABS: CHLORIDE 103 mEq/L (98-107)
[2019-10-01 22:50] LABS: BASOPHILS % 1.1 % (0.0-2.0); EOSINOPHILS % 5.3 % (0.0-5.0); HEMATOCRIT. 36.3 % (36.0-48.0); HEMOGLOBIN. 11.8 g/dL (12.0-16.0); LYMPHOCYTES % 26.8 % (20.0-50.0); MEAN CORPUSCULAR HEMOGLOBIN 28.9 pg (28.0-32.0); MEAN CORPUSCULAR VOLUME 88.7 fL (81.0-99.0); MEAN PLATELET VOLUME 7.7 fl (7.4-10.4); MONOCYTES % 12.9 % (2.0-8.0); NEUTROPHILS % 53.9 % (40.0-76.0); PLATELET 179 x1000/uL (130-400); RED BLOOD CELL COUNT 4.09 mill/uL (4.2-5.4); RED CELL DISTRIBUTION WIDTH 17.9 % (11.6-14.6)
[2019-10-01 23:15] LABS: PROTHROMBIN TIME 10.5 sec (9.6-11.0)
[2019-10-02 03:22] VITALS: BP 134/74
[2019-10-02 03:47] VITALS: BP 134/74
[2019-10-02 08:00] VITALS: BP 145/71
[2019-10-02 09:22] LABS: EOSINOPHILS % 7.4 % (0.0-5.0); HEMATOCRIT. 33.9 % (36.0-48.0); LYMPHOCYTES % 33.7 % (20.0-50.0); MEAN CORPUSCULAR HEMOGLOBIN 28.8 pg (28.0-32.0); MEAN CORPUSCULAR VOLUME 89.2 fL (81.0-99.0); MEAN PLATELET VOLUME 7.8 fl (7.4-10.4); NEUTROPHILS % 47.9 % (40.0-76.0); PLATELET 148 x1000/uL (130-400); RED CELL DISTRIBUTION WIDTH 17.8 % (11.6-14.6)
[2019-10-02 09:33] LABS: CHLORIDE 106 mEq/L (98-107)
[2019-10-02 09:39] LABS: PHOSPHORUS 6.3 mg/dL (2.5-4.9)
[2019-10-02] MEDS ORDERED: ONDANSETRON HCL 4MG/2ML INJ IV PRN (11:00)
[2019-10-02] MEDS ORDERED: CLONIDINE 0.1MG TABLET PO PRN (11:00)
[2019-10-02] MEDS ORDERED: ACETAMINOPHEN 325MG TABLET PO PRN (11:00)
[2019-10-02] MEDS ORDERED: MAGNESIUM/ALUMINUM HYDROXIDE/SIMETHICONE 30ML UDC PO PRN (11:00)
[2019-10-02] MEDS ORDERED: DOCUSATE SODIUM 100MG CAPSULE PO PRN (11:00)
[2019-10-02 12:00] VITALS: BP 159/81
[2019-10-02] MEDS: AMLODIPINE 10MG TABLET PO SCH (12:12)
[2019-10-02] MEDS: SUCRALFATE 1G TABLET PO SCH ×3 (12:13→21:23)
[2019-10-02] MEDS: ASPIRIN 81MG EC TABLET PO SCH (12:13)
[2019-10-02] MEDS: CARVEDILOL 12.5MG TABLET PO SCH (12:14)
[2019-10-02] MEDS: HYDROCODONE/ACETAMINOPHEN 5/325MG TABLET PO PRN ×2 (12:16→18:40)
[2019-10-02] MEDS: HYDRALAZINE HCL 100MG TABLET PO SCH ×2 (12:17→21:23)
[2019-10-02] MEDS ORDERED: LIDOCAINE HCL 1% 20ML VIAL (Pyxis) INJ ONE (13:40)
[2019-10-02] MEDS ORDERED: SODIUM BICARBONATE 4% (2.4MEQ) 5ML VIAL IV ONE (13:40)
[2019-10-02 16:00] VITALS: BP 124/71
[2019-10-02 20:00] VITALS: BP 122/69
[2019-10-02 21:49] LABS: CLARITY URINE CLEAR (CLEAR); COLOR URINE YELLOW (YELLOW); KETONES URINE NEGATIVE (NEGATIVE); LEUKOCYTE ESTERASE URINE NEGATIVE (NEGATIVE); NITRITE URINE NEGATIVE (NEGATIVE); OCCULT BLOOD URINE NEGATIVE (NEGATIVE); PH URINE 8.5 (4.5-8.0); PROTEIN URINE 1+ (NEGATIVE); SPECIFIC GRAVITY URINE 1.014 (1.005-1.030); UROBILINOGEN URINE 0.2 E.U./dL (0.2-1.0)
[2019-10-03] VITALS: BP 125/70
[2019-10-03] MEDS: DIPHENHYDRAMINE 50MG/ML VIAL IV PRN ×3 (06:22→18:17)
[2019-10-03] MEDS: PANTOPRAZOLE 40MG DR TABLET PO SCH (06:22)
[2019-10-03 07:28] LABS: EOSINOPHILS % 9.1 % (0.0-5.0); HEMATOCRIT. 32.9 % (36.0-48.0); HEMOGLOBIN. 10.7 g/dL (12.0-16.0); MEAN CORPUSCULAR HEMOGLOBIN 28.8 pg (28.0-32.0); MEAN CORPUSCULAR VOLUME 88.5 fL (81.0-99.0); MEAN PLATELET VOLUME 7.7 fl (7.4-10.4); NEUTROPHILS % 50.9 % (40.0-76.0); PLATELET 161 x1000/uL (130-400); RED BLOOD CELL COUNT 3.72 mill/uL (4.2-5.4); RED CELL DISTRIBUTION WIDTH 17.5 % (11.6-14.6)
[2019-10-03 07:38] LABS: PHOSPHORUS 6.4 mg/dL (2.5-4.9)
[2019-10-03 08:00] VITALS: BP 156/94
[2019-10-03] MEDS: SUCRALFATE 1G TABLET PO SCH ×4 (09:20→20:37)
[2019-10-03] MEDS: AMLODIPINE 10MG TABLET PO SCH (09:21)
[2019-10-03] MEDS: HYDROCODONE/ACETAMINOPHEN 5/325MG TABLET PO PRN ×2 (09:23→18:29)
[2019-10-03] MEDS: CARVEDILOL 12.5MG TABLET PO SCH (09:23)
[2019-10-03] MEDS: ASPIRIN 81MG EC TABLET PO SCH (09:24)
[2019-10-03] MEDS: HYDRALAZINE HCL 100MG TABLET PO SCH ×2 (09:25→20:37)
[2019-10-03] MEDS ORDERED: METOPROLOL TARTRATE 50MG TABLET PO SCH (11:15)
[2019-10-03 12:00] VITALS: BP 127/66
[2019-10-03 16:00] VITALS: BP 145/74
[2019-10-03 20:00] VITALS: BP 160/82
[2019-10-04] VITALS: BP 114/68
[2019-10-04] MEDS: DIPHENHYDRAMINE 50MG/ML VIAL IV PRN ×2 (01:27→11:50)
[2019-10-04 04:00] VITALS: BP 116/68
[2019-10-04 06:14] LABS: EOSINOPHILS % 7.5 % (0.0-5.0); HEMATOCRIT. 33.5 % (36.0-48.0); HEMOGLOBIN. 10.8 g/dL (12.0-16.0); LYMPHOCYTES % 30.9 % (20.0-50.0); MEAN CORPUSCULAR HEMOGLOBIN 28.6 pg (28.0-32.0); MEAN CORPUSCULAR VOLUME 88.5 fL (81.0-99.0); MEAN PLATELET VOLUME 7.5 fl (7.4-10.4); MONOCYTES % 6.9 % (2.0-8.0); NEUTROPHILS % 53.7 % (40.0-76.0); PLATELET 147 x1000/uL (130-400); RED BLOOD CELL COUNT 3.78 mill/uL (4.2-5.4); RED CELL DISTRIBUTION WIDTH 17.4 % (11.6-14.6)
[2019-10-04 08:00] VITALS: BP 142/70
[2019-10-04] MEDS: AMLODIPINE 10MG TABLET PO SCH (08:31)
[2019-10-04] MEDS: HYDRALAZINE HCL 100MG TABLET PO SCH (08:32)
[2019-10-04] MEDS: ASPIRIN 81MG EC TABLET PO SCH (08:33)
[2019-10-04] MEDS: SUCRALFATE 1G TABLET PO SCH (08:33)
[2019-10-04] MEDS: PANTOPRAZOLE 40MG DR TABLET PO SCH (08:33)
[2019-10-04] MEDS: CARVEDILOL 12.5MG TABLET PO SCH (08:33)
[2019-10-04 12:00] VITALS: BP 135/72
[2019-10-04 13:16] VITALS: BP 135/72
== END 2019-10-04 14:29 | disposition home or self-care (01) | DRG 391 ==
LOC: ER 20:51 → 7WST 23:44 → ENRESERV 10-02 02:24 → CANBEDREQ 10-02 16:29
PROVIDERS: ADMIT Family Medicine Adult Medicine; ATTEND Family Medicine Adult Medicine
DX: K57.30 Diverticulosis of large intestine without perforation or abscess without bleeding (principal); N18.6 End stage renal disease; I12.0 Hypertensive chronic kidney disease with stage 5 chronic kidney disease or end stage renal disease; I69.354 Hemiplegia and hemiparesis following cerebral infarction affecting left non-dominant side; N20.0 Calculus of kidney; J44.9 Chronic obstructive pulmonary disease, unspecified; E83.39 Other disorders of phosphorus metabolism; I25.10 Atherosclerotic heart disease of native coronary artery without angina pectoris; D63.8 Anemia in other chronic diseases classified elsewhere; Z91.19 Patient's noncompliance with other medical treatment and regimen; Z99.2 Dependence on renal dialysis; Z95.2 Presence of prosthetic heart valve; Z87.442 Personal history of urinary calculi; Z95.1 Presence of aortocoronary bypass graft; Z88.9 Allergy status to unspecified drugs, medicaments and biological substances
CPT/HCPCS: 36415; 74176; 80048; 81003; 83735; 84100; 93970; 96361; 96374; 96375; 97162; 97166; 99285; J1200; J2270; J2405; J3490; J7030

== ENCOUNTER 2019-10-31 01:33 | Inpatient (IN) | payer MEDICARE, MEDICAID ==
[~2019-10-31] VITALS: Ht 160 cm; Wt 84.4 kg
[2019-10-31] MEDS ORDERED: MORPHINE SULFATE 4 MG/ML CPJ (NOT FOR IM USE) IV STA (04:44)
[2019-10-31 05:15] LABS: BASOPHILS % 1.2 % (0.0-2.0); HEMATOCRIT. 31.4 % (36.0-48.0); HEMOGLOBIN. 10.4 g/dL (12.0-16.0); LYMPHOCYTES % 19.8 % (20.0-50.0); MEAN CORPUSCULAR HEMOGLOBIN 28.5 pg (28.0-32.0); MEAN CORPUSCULAR VOLUME 86.1 fL (81.0-99.0); MEAN PLATELET VOLUME 7.6 fl (7.4-10.4); MONOCYTES % 7.6 % (2.0-8.0); NEUTROPHILS % 67.4 % (40.0-76.0); PLATELET 189 x1000/uL (130-400); RED BLOOD CELL COUNT 3.64 mill/uL (4.2-5.4); RED CELL DISTRIBUTION WIDTH 17.9 % (11.6-14.6)
[2019-10-31 05:23] LABS: PROTHROMBIN TIME 10.1 sec (9.6-11.0)
[2019-10-31 05:32] LABS: CHLORIDE 105 mEq/L (98-107)
[2019-10-31 06:13] LABS: CLARITY URINE CLEAR (CLEAR); COLOR URINE YELLOW (YELLOW); KETONES URINE NEGATIVE (NEGATIVE); LEUKOCYTE ESTERASE URINE NEGATIVE (NEGATIVE); NITRITE URINE NEGATIVE (NEGATIVE); OCCULT BLOOD URINE NEGATIVE (NEGATIVE); PH URINE 8.5 (4.5-8.0); PROTEIN URINE 1+ (NEGATIVE); SPECIFIC GRAVITY URINE 1.013 (1.005-1.030); UROBILINOGEN URINE 0.2 E.U./dL (0.2-1.0)
[2019-10-31] MEDS ORDERED: MORPHINE SULFATE 4 MG/ML CPJ (NOT FOR IM USE) IV NR (07:30)
[2019-10-31 08:00] VITALS: BP 147/81
[2019-10-31] MEDS: DIPHENHYDRAMINE 50MG CAPSULE PO PRN (11:29)
[2019-10-31 11:32] VITALS: BP 142/80
[2019-10-31] MEDS: CARVEDILOL 12.5MG TABLET PO SCH ×3 (11:45→21:00)
[2019-10-31] MEDS: HYDRALAZINE HCL 50MG TABLET PO SCH ×3 (11:45→17:00)
[2019-10-31] MEDS ORDERED: ACETAMINOPHEN 325MG TABLET PO PRN (11:45)
[2019-10-31] MEDS: AMLODIPINE 10MG TABLET PO SCH ×2 (11:45→12:33)
[2019-10-31 12:00] VITALS: BP 132/65
[2019-10-31] MEDS: ONDANSETRON HCL 4MG/2ML INJ IV PRN (12:32)
[2019-10-31] MEDS: ASPIRIN 81MG EC TABLET PO SCH (12:42)
[2019-10-31 16:00] VITALS: BP 152/86
[2019-10-31] MEDS: HYDROCODONE/ACETAMINOPHEN 5/325MG TABLET PO PRN ×2 (17:30→22:45)
[2019-10-31 20:00] VITALS: BP 143/83
[2019-10-31] MEDS: HEPARIN 5000 UNITS/ML VIAL SUBCUT SCH (22:44)
[2019-11-01] VITALS (7 sets, daily range): BP systolic 105–136; BP diastolic 54–84
[2019-11-01 07:47] LABS: BASOPHILS % 0.7 % (0.0-2.0); EOSINOPHILS % 2.5 % (0.0-5.0); HEMATOCRIT. 30.3 % (36.0-48.0); MEAN CORPUSCULAR HEMOGLOBIN 28.3 pg (28.0-32.0); MEAN CORPUSCULAR VOLUME 85.6 fL (81.0-99.0); MEAN PLATELET VOLUME 7.5 fl (7.4-10.4); MONOCYTES % 8.1 % (2.0-8.0); NEUTROPHILS % 65.7 % (40.0-76.0); PLATELET 175 x1000/uL (130-400); RED BLOOD CELL COUNT 3.54 mill/uL (4.2-5.4); RED CELL DISTRIBUTION WIDTH 17.9 % (11.6-14.6)
[2019-11-01] MEDS: CARVEDILOL 12.5MG TABLET PO SCH ×2 (10:06→20:36)
[2019-11-01] MEDS: HYDROCODONE/ACETAMINOPHEN 5/325MG TABLET PO PRN (10:06)
[2019-11-01] MEDS: AMLODIPINE 10MG TABLET PO SCH (10:07)
[2019-11-01] MEDS: ASPIRIN 81MG EC TABLET PO SCH (10:07)
[2019-11-01] MEDS: HYDRALAZINE HCL 50MG TABLET PO SCH ×2 (10:07→18:12)
[2019-11-01] MEDS: HEPARIN 5000 UNITS/ML VIAL SUBCUT SCH (15:08)
[2019-11-01] MEDS: HYDROCODONE/ACETAMINOPHEN 10/325MG TABLET PO PRN (18:12)
[2019-11-01] MEDS: DIPHENHYDRAMINE 50MG CAPSULE PO PRN (20:36)
[2019-11-02] VITALS: BP 135/74
[2019-11-02] MEDS: HYDROCODONE/ACETAMINOPHEN 10/325MG TABLET PO PRN ×4 (00:26→23:16)
[2019-11-02] MEDS: ONDANSETRON HCL 4MG/2ML INJ IV PRN ×2 (00:30→14:53)
[2019-11-02 04:00] VITALS: BP 146/81
[2019-11-02] MEDS: HEPARIN 5000 UNITS/ML VIAL SUBCUT SCH ×3 (04:30→16:06)
[2019-11-02 07:53] VITALS: BP 120/61
[2019-11-02 08:07] LABS: BASOPHILS % 0.7 % (0.0-2.0); HEMATOCRIT. 31.6 % (36.0-48.0); HEMOGLOBIN. 10.3 g/dL (12.0-16.0); LYMPHOCYTES % 25.4 % (20.0-50.0); MEAN CORPUSCULAR HEMOGLOBIN 28.1 pg (28.0-32.0); MEAN CORPUSCULAR VOLUME 86.4 fL (81.0-99.0); MEAN PLATELET VOLUME 7.5 fl (7.4-10.4); MONOCYTES % 12.6 % (2.0-8.0); NEUTROPHILS % 55.3 % (40.0-76.0); PLATELET 179 x1000/uL (130-400); RED BLOOD CELL COUNT 3.66 mill/uL (4.2-5.4); RED CELL DISTRIBUTION WIDTH 17.6 % (11.6-14.6)
[2019-11-02] MEDS: HYDRALAZINE HCL 50MG TABLET PO SCH ×2 (08:44→16:17)
[2019-11-02] MEDS: AMLODIPINE 10MG TABLET PO SCH (08:45)
[2019-11-02] MEDS: CARVEDILOL 12.5MG TABLET PO SCH ×2 (08:45→23:15)
[2019-11-02] MEDS: ASPIRIN 81MG EC TABLET PO SCH (09:19)
[2019-11-02 11:33] VITALS: BP 126/60
[2019-11-02] MEDS ORDERED: PIPERACILLIN/TAZOBACTAM 3.375 G in DEXT 5% WATER 100 ML IV SCH (14:15)
[2019-11-02 16:00] VITALS: BP 137/79
[2019-11-02] MEDS ORDERED: VANCOMYCIN 1250MG in DEXTROSE 5% WATER 250ML IV SCH (16:00)
[2019-11-02] MEDS: PIPERACILLIN/TAZOBACTAM 2.25 G in DEXTROSE 5% WATER 50 ML IV SCH (17:27)
[2019-11-02] MEDS: METOCLOPRAMIDE HCL 10MG/2ML VIAL IV SCH ×2 (17:27→23:21)
[2019-11-02] MEDS: DEXTROSE 5% WATER 1,000 ML IV SCH (17:39)
[2019-11-02 20:00] VITALS: BP 116/65
[2019-11-03] VITALS: BP 126/72
[2019-11-03] MEDS: PIPERACILLIN/TAZOBACTAM 2.25 G in DEXTROSE 5% WATER 50 ML IV SCH ×3 (03:00→18:00)
[2019-11-03 04:00] VITALS: BP 95/51
[2019-11-03] MEDS: HEPARIN 5000 UNITS/ML VIAL SUBCUT SCH ×2 (06:15→16:12)
[2019-11-03] MEDS: METOCLOPRAMIDE HCL 10MG/2ML VIAL IV SCH ×3 (06:15→18:00)
[2019-11-03 07:10] LABS: BASOPHILS % 0.9 % (0.0-2.0); EOSINOPHILS % 4.5 % (0.0-5.0); HEMOGLOBIN. 9.7 g/dL (12.0-16.0); LYMPHOCYTES % 24.1 % (20.0-50.0); MEAN CORPUSCULAR HEMOGLOBIN 27.6 pg (28.0-32.0); MEAN CORPUSCULAR VOLUME 85.9 fL (81.0-99.0); MEAN PLATELET VOLUME 7.4 fl (7.4-10.4); MONOCYTES % 14.1 % (2.0-8.0); NEUTROPHILS % 56.4 % (40.0-76.0); PLATELET 179 x1000/uL (130-400); RED BLOOD CELL COUNT 3.49 mill/uL (4.2-5.4); RED CELL DISTRIBUTION WIDTH 17.9 % (11.6-14.6)
[2019-11-03 08:00] VITALS: BP 107/53
[2019-11-03] MEDS: HYDRALAZINE HCL 50MG TABLET PO SCH ×2 (08:46→16:12)
[2019-11-03] MEDS: CARVEDILOL 12.5MG TABLET PO SCH ×2 (08:46→21:00)
[2019-11-03] MEDS: AMLODIPINE 10MG TABLET PO SCH (08:47)
[2019-11-03] MEDS: HYDROCODONE/ACETAMINOPHEN 10/325MG TABLET PO PRN ×3 (08:48→23:27)
[2019-11-03] MEDS: ASPIRIN 81MG EC TABLET PO SCH (08:48)
[2019-11-03 12:00] VITALS: BP 117/68
[2019-11-03] MEDS ORDERED: HYDR-4001 PO (13:15)
[2019-11-03] MEDS ORDERED: TRAM50TA3 MT (13:17)
[2019-11-03] MEDS: DEXTROSE 5% WATER 1,000 ML IV SCH (16:12)
[2019-11-03] MEDS ORDERED: VANCOMYCIN 750 MG PREMIX 150 ML IV SCH (18:00)
[2019-11-03 20:00] VITALS: BP 122/61
[2019-11-04] VITALS: BP 159/97
[2019-11-04] MEDS: CARVEDILOL 12.5MG TABLET PO SCH ×2 (01:02→22:02)
[2019-11-04] MEDS: MORPHINE SULFATE 2 MG/ML CPJ (NOT FOR IM USE) IV PRN ×2 (01:03→06:46)
[2019-11-04] MEDS: PIPERACILLIN/TAZOBACTAM 2.25 G in DEXTROSE 5% WATER 50 ML IV SCH ×2 (03:05→10:24)
[2019-11-04] MEDS: METOCLOPRAMIDE HCL 10MG/2ML VIAL IV SCH ×3 (03:05→17:33)
[2019-11-04 04:00] VITALS: BP 95/77
[2019-11-04] MEDS: HEPARIN 5000 UNITS/ML VIAL SUBCUT SCH ×2 (04:33→16:22)
[2019-11-04 08:00] VITALS: BP 124/79
[2019-11-04] MEDS: ASPIRIN 81MG EC TABLET PO SCH (08:21)
[2019-11-04] MEDS: HYDRALAZINE HCL 50MG TABLET PO SCH ×2 (08:30→17:33)
[2019-11-04] MEDS: AMLODIPINE 10MG TABLET PO SCH (08:31)
[2019-11-04] MEDS: ONDANSETRON HCL 4MG/2ML INJ IV PRN (09:30)
[2019-11-04 12:00] VITALS: BP 128/68
[2019-11-04] MEDS: HYDROCODONE/ACETAMINOPHEN 10/325MG TABLET PO PRN (12:25)
[2019-11-04] MEDS ORDERED: VANCOMYCIN 750 MG PREMIX 150 ML IV SCH (14:00)
[2019-11-04 16:00] VITALS: BP 132/64
[2019-11-04] MEDS: DEXTROSE 5% WATER 1,000 ML IV SCH (16:18)
[2019-11-04 20:00] VITALS: BP_SYST 102; BP_SYST 126; BP_DIAS 56; BP_DIAS 68
[2019-11-04] MEDS: DIPHENHYDRAMINE 50MG CAPSULE PO PRN (22:02)
[2019-11-05] VITALS: BP 94/57
[2019-11-05] MEDS: METOCLOPRAMIDE HCL 10MG/2ML VIAL IV SCH ×3 (00:13→12:50)
[2019-11-05 04:00] VITALS: BP 120/62
[2019-11-05] MEDS: HEPARIN 5000 UNITS/ML VIAL SUBCUT SCH ×2 (04:32→16:33)
[2019-11-05] MEDS: HYDROCODONE/ACETAMINOPHEN 10/325MG TABLET PO PRN (04:33)
[2019-11-05 08:00] VITALS: BP 117/65
[2019-11-05] MEDS: HYDRALAZINE HCL 50MG TABLET PO SCH ×2 (08:44→16:10)
[2019-11-05] MEDS: ASPIRIN 81MG EC TABLET PO SCH (08:44)
[2019-11-05] MEDS: CARVEDILOL 12.5MG TABLET PO SCH ×2 (08:44→21:00)
[2019-11-05] MEDS: AMLODIPINE 10MG TABLET PO SCH (08:45)
[2019-11-05 10:26] LABS: BASOPHILS % 0.8 % (0.0-2.0); EOSINOPHILS % 6.9 % (0.0-5.0); HEMATOCRIT. 32.2 % (36.0-48.0); HEMOGLOBIN. 10.3 g/dL (12.0-16.0); LYMPHOCYTES % 31.5 % (20.0-50.0); MEAN CORPUSCULAR HEMOGLOBIN 27.9 pg (28.0-32.0); MEAN CORPUSCULAR VOLUME 87.1 fL (81.0-99.0); MEAN PLATELET VOLUME 7.8 fl (7.4-10.4); MONOCYTES % 11.2 % (2.0-8.0); NEUTROPHILS % 49.6 % (40.0-76.0); PLATELET 194 x1000/uL (130-400); RED CELL DISTRIBUTION WIDTH 17.6 % (11.6-14.6)
[2019-11-05 12:00] VITALS: BP 109/46
[2019-11-05] MEDS: DEXTROSE 5% WATER 1,000 ML IV SCH (15:51)
[2019-11-05] MEDS: MORPHINE SULFATE 2 MG/ML CPJ (NOT FOR IM USE) IV PRN (18:32)
[2019-11-05] MEDS: DIPHENHYDRAMINE 50MG CAPSULE PO PRN (21:03)
[2019-11-06] VITALS: BP 110/58
[2019-11-06 04:00] VITALS: BP 119/73
[2019-11-06] MEDS: MORPHINE SULFATE 2 MG/ML CPJ (NOT FOR IM USE) IV PRN ×3 (05:30→22:41)
[2019-11-06] MEDS: HEPARIN 5000 UNITS/ML VIAL SUBCUT SCH ×2 (05:30→17:05)
[2019-11-06 07:02] LABS: BASOPHILS % 1.1 % (0.0-2.0); EOSINOPHILS % 7.2 % (0.0-5.0); HEMATOCRIT. 32.5 % (36.0-48.0); HEMOGLOBIN. 10.8 g/dL (12.0-16.0); LYMPHOCYTES % 29.7 % (20.0-50.0); MEAN CORPUSCULAR HEMOGLOBIN 28.1 pg (28.0-32.0); MEAN CORPUSCULAR VOLUME 84.7 fL (81.0-99.0); MEAN PLATELET VOLUME 7.8 fl (7.4-10.4); MONOCYTES % 10.3 % (2.0-8.0); NEUTROPHILS % 51.7 % (40.0-76.0); PLATELET 205 x1000/uL (130-400); RED BLOOD CELL COUNT 3.83 mill/uL (4.2-5.4); RED CELL DISTRIBUTION WIDTH 17.7 % (11.6-14.6)
[2019-11-06 08:00] VITALS: BP 126/60
[2019-11-06] MEDS: ASPIRIN 81MG EC TABLET PO SCH (08:44)
[2019-11-06] MEDS: FOLIC ACID/VITAMIN B COMP W-C TABLET PO SCH (08:44)
[2019-11-06] MEDS: HYDRALAZINE HCL 50MG TABLET PO SCH ×2 (08:45→17:00)
[2019-11-06] MEDS: CARVEDILOL 12.5MG TABLET PO SCH ×2 (08:45→22:41)
[2019-11-06] MEDS: AMLODIPINE 10MG TABLET PO SCH (08:46)
[2019-11-06 12:00] VITALS: BP 124/65
[2019-11-06] MEDS: CEFAZOLIN 2,000 MG in DEXT 5% WATER 100 ML IV SCH (15:19)
[2019-11-06 16:00] VITALS: BP 101/55
[2019-11-06] MEDS: DEXTROSE 5% WATER 1,000 ML IV SCH (17:05)
[2019-11-06 20:00] VITALS: BP 110/70
[2019-11-07] VITALS: BP 102/50
[2019-11-07 04:00] VITALS: BP 102/55
[2019-11-07] MEDS: HEPARIN 5000 UNITS/ML VIAL SUBCUT SCH ×2 (05:30→16:25)
[2019-11-07] MEDS: MORPHINE SULFATE 2 MG/ML CPJ (NOT FOR IM USE) IV PRN ×2 (05:32→13:33)
[2019-11-07 08:00] VITALS: BP 114/52
[2019-11-07] MEDS: ASPIRIN 81MG EC TABLET PO SCH (08:39)
[2019-11-07] MEDS: FOLIC ACID/VITAMIN B COMP W-C TABLET PO SCH (08:39)
[2019-11-07] MEDS: CARVEDILOL 12.5MG TABLET PO SCH ×3 (08:39→21:26)
[2019-11-07] MEDS: HYDRALAZINE HCL 50MG TABLET PO SCH ×2 (08:39→16:23)
[2019-11-07] MEDS: AMLODIPINE 10MG TABLET PO SCH (08:40)
[2019-11-07 12:00] VITALS: BP 137/68
[2019-11-07] MEDS: CEFAZOLIN 2,000 MG in DEXT 5% WATER 100 ML IV SCH (13:31)
[2019-11-07] MEDS: ONDANSETRON HCL 4MG/2ML INJ IV PRN (13:42)
[2019-11-07 16:00] VITALS: BP 128/69
[2019-11-07 20:00] VITALS: BP 118/71
[2019-11-07] MEDS: HYDROCODONE/ACETAMINOPHEN 5/325MG TABLET PO PRN (21:25)
[2019-11-07] MEDS: DIPHENHYDRAMINE 50MG CAPSULE PO PRN (21:31)
[2019-11-08] VITALS: BP 102/59
[2019-11-08 04:00] VITALS: BP 99/47
[2019-11-08] MEDS: HEPARIN 5000 UNITS/ML VIAL SUBCUT SCH ×2 (05:04→16:12)
[2019-11-08 07:12] LABS: EOSINOPHILS % 6.8 % (0.0-5.0); HEMATOCRIT. 31.4 % (36.0-48.0); HEMOGLOBIN. 10.3 g/dL (12.0-16.0); LYMPHOCYTES % 26.2 % (20.0-50.0); MEAN CORPUSCULAR VOLUME 85.5 fL (81.0-99.0); MEAN PLATELET VOLUME 7.5 fl (7.4-10.4); MONOCYTES % 7.7 % (2.0-8.0); NEUTROPHILS % 58.3 % (40.0-76.0); PLATELET 212 x1000/uL (130-400); RED BLOOD CELL COUNT 3.67 mill/uL (4.2-5.4); RED CELL DISTRIBUTION WIDTH 17.2 % (11.6-14.6)
[2019-11-08 08:00] VITALS: BP 118/69
[2019-11-08] MEDS: HYDRALAZINE HCL 50MG TABLET PO SCH (09:00)
[2019-11-08] MEDS: AMLODIPINE 10MG TABLET PO SCH (09:00)
[2019-11-08] MEDS: CARVEDILOL 12.5MG TABLET PO SCH (09:00)
[2019-11-08] MEDS: FOLIC ACID/VITAMIN B COMP W-C TABLET PO SCH (09:12)
[2019-11-08] MEDS: ASPIRIN 81MG EC TABLET PO SCH (09:12)
[2019-11-08] MEDS: HYDROCODONE/ACETAMINOPHEN 5/325MG TABLET PO PRN ×2 (09:13→16:12)
[2019-11-08 12:00] VITALS: BP 105/59
[2019-11-08] MEDS: CEFAZOLIN 2,000 MG in DEXT 5% WATER 100 ML IV SCH (13:48)
[2019-11-08 16:00] VITALS: BP 127/73
[2019-11-08] MEDS ORDERED: LINE600T14 MT (16:45)
[2019-11-08 18:37] VITALS: BP 127/73
== END 2019-11-08 18:52 | disposition home or self-care (01) | DRG 871 ==
LOC: EDBD → ER 01:33 → 6EST 07:33 → ENRESERV 08:00
PROVIDERS: ADMIT Family Medicine Adult Medicine; ATTEND Family Medicine Adult Medicine
PROC: 5A1D70Z Performance of Urinary Filtration, Intermittent, Less than 6 Hours Per Day (ICD-10-PCS; principal; 2019-10-31)
PROC: 5A1D70Z Performance of Urinary Filtration, Intermittent, Less than 6 Hours Per Day (ICD-10-PCS; 2019-11-02)
PROC: 5A1D70Z Performance of Urinary Filtration, Intermittent, Less than 6 Hours Per Day (ICD-10-PCS; 2019-11-03)
PROC: 5A1D70Z Performance of Urinary Filtration, Intermittent, Less than 6 Hours Per Day (ICD-10-PCS; 2019-11-05)
PROC: 5A1D70Z Performance of Urinary Filtration, Intermittent, Less than 6 Hours Per Day (ICD-10-PCS; 2019-11-07)
DX: A41.9 Sepsis, unspecified organism (principal); N18.6 End stage renal disease; I50.43 Acute on chronic combined systolic (congestive) and diastolic (congestive) heart failure; I12.0 Hypertensive chronic kidney disease with stage 5 chronic kidney disease or end stage renal disease; N17.9 Acute kidney failure, unspecified; K52.9 Noninfective gastroenteritis and colitis, unspecified; Z99.2 Dependence on renal dialysis; E87.70 Fluid overload, unspecified; J06.9 Acute upper respiratory infection, unspecified; D63.1 Anemia in chronic kidney disease; E11.22 Type 2 diabetes mellitus with diabetic chronic kidney disease; E78.5 Hyperlipidemia, unspecified; R68.83 Chills (without fever); R61 Generalized hyperhidrosis; M79.10 Myalgia, unspecified site; R74.8 Abnormal levels of other serum enzymes; R79.89 Other specified abnormal findings of blood chemistry; M54.5 Low back pain; K57.90 Diverticulosis of intestine, part unspecified, without perforation or abscess without bleeding; I10 Essential (primary) hypertension; B95.61 Methicillin susceptible Staphylococcus aureus infection as the cause of diseases classified elsewhere; I25.10 Atherosclerotic heart disease of native coronary artery without angina pectoris; J44.9 Chronic obstructive pulmonary disease, unspecified; Z79.899 Other long term (current) drug therapy; Z95.1 Presence of aortocoronary bypass graft; Z82.49 Family history of ischemic heart disease and other diseases of the circulatory system; Z88.6 Allergy status to analgesic agent; Z79.82 Long term (current) use of aspirin; Z95.3 Presence of xenogenic heart valve; Z86.73 Personal history of transient ischemic attack (TIA), and cerebral infarction without residual deficits; Z91.041 Radiographic dye allergy status
CPT/HCPCS: 36415; 71045; 72131; 74176; 80048; 80053; 80202; 81003; 82550; 82962; 83880; 84484; 85025; 87077; 87804; 93005; 93306; 96374; 97162; 99285; C1893; J0690; J1644; J2270; J2405; J2543; J2765; J3370; J7040; J7060; J7070; Q0163

== ENCOUNTER 2019-11-27 21:00 | Inpatient (IN) | payer MEDICARE, MEDICAID ==
[~2019-11-27] VITALS: Ht 160 cm; Wt 83.0 kg
[~2019-11-27 21:00] MED LIST changes: +LINE600T14 MT
[2019-11-27] MEDS ORDERED: ONDANSETRON HCL 4MG/2ML INJ IV STA (23:03)
[2019-11-27] MEDS ORDERED: MORPHINE SULFATE 4 MG/ML CPJ (NOT FOR IM USE) IV STA (23:03)
[2019-11-27] MEDS ORDERED: HYDRALAZINE 20MG/ML VIAL IV ONE (23:15)
[2019-11-27 23:59] LABS: EOSINOPHILS % 5.4 % (0.0-5.0); HEMATOCRIT. 27.1 % (36.0-48.0); HEMOGLOBIN. 8.9 g/dL (12.0-16.0); LYMPHOCYTES % 24.3 % (20.0-50.0); MEAN CORPUSCULAR HEMOGLOBIN 29.6 pg (28.0-32.0); MEAN CORPUSCULAR VOLUME 89.9 fL (81.0-99.0); MONOCYTES % 7.3 % (2.0-8.0); PLATELET 166 x1000/uL (130-400); RED BLOOD CELL COUNT 3.01 mill/uL (4.2-5.4); RED CELL DISTRIBUTION WIDTH 19.9 % (11.6-14.6)
[2019-11-28 00:03] LABS: CHLORIDE 107 mEq/L (98-107)
[2019-11-28] MEDS: MORPHINE SULFATE 2 MG/ML CPJ (NOT FOR IM USE) IV PRN ×2 (06:29→13:24)
[2019-11-28] MEDS ORDERED: NIFEDIPINE XL 30MG TAB PO SCH ×2 (10:45→19:13)
[2019-11-28] MEDS ORDERED: ACETAMINOPHEN 325MG TABLET PO PRN (10:45)
[2019-11-28] MEDS ORDERED: ONDANSETRON HCL 4MG/2ML INJ IV PRN (10:45)
[2019-11-28] MEDS: HYDROCODONE/ACETAMINOPHEN 5/325MG TABLET PO PRN ×2 (18:00→23:35)
[2019-11-28] MEDS: DIPHENHYDRAMINE 50MG/ML VIAL IV PRN (23:34)
[2019-11-29] VITALS: BP 177/86
[2019-11-29 06:00] VITALS: BP 150/85
[2019-11-29 08:00] VITALS: BP 166/85
[2019-11-29] MEDS: CALCIUM ACETATE 667MG CAPSULE PO SCH ×3 (08:39→17:21)
[2019-11-29] MEDS: DIPHENHYDRAMINE 50MG/ML VIAL IV PRN ×2 (08:39→17:21)
[2019-11-29] MEDS: NIFEDIPINE XL 30MG TAB PO SCH ×3 (08:39→21:44)
[2019-11-29 09:18] LABS: HEMATOCRIT. 24.9 % (36.0-48.0); HEMOGLOBIN. 8.3 g/dL (12.0-16.0); MEAN CORPUSCULAR HEMOGLOBIN 30.1 pg (28.0-32.0); MEAN CORPUSCULAR VOLUME 89.8 fL (81.0-99.0); MEAN PLATELET VOLUME 7.8 fl (7.4-10.4); PLATELET 181 x1000/uL (130-400); RED BLOOD CELL COUNT 2.77 mill/uL (4.2-5.4); RED CELL DISTRIBUTION WIDTH 19.6 % (11.6-14.6)
[2019-11-29 09:23] LABS: CLARITY URINE CLEAR (CLEAR); COLOR URINE YELLOW (YELLOW); KETONES URINE NEGATIVE (NEGATIVE); LEUKOCYTE ESTERASE URINE NEGATIVE (NEGATIVE); NITRITE URINE NEGATIVE (NEGATIVE); OCCULT BLOOD URINE NEGATIVE (NEGATIVE); PH URINE 6.5 (4.5-8.0); PROTEIN URINE 1+ (NEGATIVE); SPECIFIC GRAVITY URINE 1.014 (1.005-1.030); UROBILINOGEN URINE 0.2 E.U./dL (0.2-1.0)
[2019-11-29 09:43] LABS: *AMPHETAMINES SCREEN URINE NEGATIVE (NEGATIVE)
[2019-11-29 09:44] LABS: *BARBITURATES SCREEN URINE NEGATIVE (NEGATIVE); *BENZODIAZEPINES SCREEN URINE NEGATIVE (NEGATIVE); *COCAINE SCREEN URINE NEGATIVE (NEGATIVE); METHADONE URINE SCREEN NEGATIVE (NEGATIVE); OPIATES URINE SCREEN PRESUMTIVE POSITIVE (NEGATIVE)
[2019-11-29 09:45] LABS: CANNABINOID URINE SCREEN NEGATIVE (NEGATIVE); PHENCYCLIDINE URINE SCREEN NEGATIVE (NEGATIVE)
[2019-11-29] MEDS: LOSARTAN POTASSIUM 50 MG TABLET PO SCH (10:00)
[2019-11-29 10:09] LABS: PLATELET ESTIMATE NORMAL
[2019-11-29] MEDS: HYDROCODONE/ACETAMINOPHEN 5/325MG TABLET PO PRN ×2 (11:31→22:41)
[2019-11-29 20:00] VITALS: BP 128/85
[2019-11-30] VITALS: BP_SYST 125; BP_SYST 147; BP_DIAS 57; BP_DIAS 87
[2019-11-30] MEDS: DIPHENHYDRAMINE 50MG/ML VIAL IV PRN ×3 (01:56→18:01)
[2019-11-30 04:00] VITALS: BP 145/89
[2019-11-30] MEDS: CALCIUM ACETATE 667MG CAPSULE PO SCH ×3 (07:50→18:01)
[2019-11-30 08:00] VITALS: BP 113/62
[2019-11-30] MEDS: LOSARTAN POTASSIUM 50 MG TABLET PO SCH (10:23)
[2019-11-30] MEDS: NIFEDIPINE XL 30MG TAB PO SCH ×2 (10:23→20:37)
[2019-11-30 12:06] LABS: BASOPHILS % 0.9 % (0.0-2.0); EOSINOPHILS % 5.5 % (0.0-5.0); HEMATOCRIT. 25.2 % (36.0-48.0); HEMOGLOBIN. 8.3 g/dL (12.0-16.0); LYMPHOCYTES % 23.8 % (20.0-50.0); MEAN CORPUSCULAR HEMOGLOBIN 29.4 pg (28.0-32.0); MEAN CORPUSCULAR VOLUME 89.4 fL (81.0-99.0); MEAN PLATELET VOLUME 7.5 fl (7.4-10.4); MONOCYTES % 5.7 % (2.0-8.0); NEUTROPHILS % 64.1 % (40.0-76.0); PLATELET 169 x1000/uL (130-400); RED BLOOD CELL COUNT 2.81 mill/uL (4.2-5.4); RED CELL DISTRIBUTION WIDTH 19.1 % (11.6-14.6)
[2019-11-30 16:00] VITALS: BP 161/90
[2019-11-30] MEDS: HYDROCODONE/ACETAMINOPHEN 5/325MG TABLET PO PRN (16:57)
[2019-11-30] MEDS: CLONIDINE 0.1MG TABLET PO PRN (17:03)
[2019-11-30 20:33] VITALS: BP 124/66
[2019-12-01] VITALS: BP 105/45
[2019-12-01] MEDS: DIPHENHYDRAMINE 50MG/ML VIAL IV PRN ×3 (01:59→18:19)
[2019-12-01 04:00] VITALS: BP 139/73
[2019-12-01 08:00] VITALS: BP_SYST 143; BP_DIAS 81; BP_DIAS 83
[2019-12-01 08:03] LABS: BASOPHILS % 0.6 % (0.0-2.0); EOSINOPHILS % 6.2 % (0.0-5.0); HEMATOCRIT. 21.5 % (36.0-48.0); HEMOGLOBIN. 7.2 g/dL (12.0-16.0); LYMPHOCYTES % 31.2 % (20.0-50.0); MEAN CORPUSCULAR HEMOGLOBIN 29.7 pg (28.0-32.0); MEAN CORPUSCULAR VOLUME 89.1 fL (81.0-99.0); MEAN PLATELET VOLUME 7.5 fl (7.4-10.4); MONOCYTES % 8.5 % (2.0-8.0); NEUTROPHILS % 53.5 % (40.0-76.0); PLATELET 146 x1000/uL (130-400); RED BLOOD CELL COUNT 2.41 mill/uL (4.2-5.4); RED CELL DISTRIBUTION WIDTH 18.9 % (11.6-14.6)
[2019-12-01] MEDS: LOSARTAN POTASSIUM 50 MG TABLET PO SCH (08:30)
[2019-12-01] MEDS: NIFEDIPINE XL 30MG TAB PO SCH ×2 (08:31→21:26)
[2019-12-01] MEDS: CALCIUM ACETATE 667MG CAPSULE PO SCH ×3 (08:31→18:10)
[2019-12-01 11:15] LABS: HEMATOCRIT 21.8 % (36.0-48.0); HEMOGLOBIN 7.2 g/dL (12.0-16.0)
[2019-12-01 12:00] VITALS: BP 171/86
[2019-12-01 14:40] LABS: TOTAL IRON BINDING CAPACITY 171 ug/dL (250-450)
[2019-12-01 16:00] VITALS: BP 126/75
[2019-12-01 20:23] VITALS: BP 137/74
[2019-12-01] MEDS: HYDROCODONE/ACETAMINOPHEN 5/325MG TABLET PO PRN (21:29)
[2019-12-02] VITALS (14 sets, daily range): BP systolic 128–218; BP diastolic 54–120
[2019-12-02] MEDS: DIPHENHYDRAMINE 50MG/ML VIAL IV PRN ×3 (02:00→20:21)
[2019-12-02 07:15] LABS: BASOPHILS % 0.7 % (0.0-2.0); EOSINOPHILS % 5.1 % (0.0-5.0); HEMATOCRIT. 21.1 % (36.0-48.0); LYMPHOCYTES % 29.7 % (20.0-50.0); MEAN CORPUSCULAR HEMOGLOBIN 29.1 pg (28.0-32.0); MEAN CORPUSCULAR VOLUME 88.5 fL (81.0-99.0); MEAN PLATELET VOLUME 7.3 fl (7.4-10.4); MONOCYTES % 7.8 % (2.0-8.0); NEUTROPHILS % 56.7 % (40.0-76.0); PLATELET 144 x1000/uL (130-400); RED BLOOD CELL COUNT 2.38 mill/uL (4.2-5.4); RED CELL DISTRIBUTION WIDTH 18.7 % (11.6-14.6)
[2019-12-02 07:47] LABS: HEMOGLOBIN. 6.9 g/dL (12.0-16.0)
[2019-12-02 08:14] LABS: PROTHROMBIN TIME 10.1 sec (9.6-11.0)
[2019-12-02] MEDS ORDERED: CEFAZOLIN 1000MG PREMIX 50 ML IV SCH (08:30)
[2019-12-02] MEDS ORDERED: CEFAZOLIN 1000MG PREMIX 50 ML IV ONE (08:34)
[2019-12-02] MEDS ORDERED: FENTANYL CITRATE/PF 50MCG/ML 2ML VIAL ONE (08:35)
[2019-12-02] MEDS ORDERED: SODIUM BICARBONATE 4% (2.4MEQ) 5ML VIAL IV ONE (08:45)
[2019-12-02] MEDS ORDERED: LIDOCAINE HCL 1% 20ML VIAL (Pyxis) INJ ONE (08:45)
[2019-12-02] MEDS: NIFEDIPINE XL 30MG TAB PO SCH ×2 (09:00→18:57)
[2019-12-02] MEDS: LOSARTAN POTASSIUM 50 MG TABLET PO SCH ×2 (09:00→12:26)
[2019-12-02] MEDS ORDERED: FENTANYL CITRATE/PF 50MCG/ML 2ML VIAL IV ONE (10:15)
[2019-12-02] MEDS ORDERED: FENTANYL CITRATE/PF 50MCG/ML 2ML VIAL IV SCH (10:30)
[2019-12-02] MEDS: CALCIUM ACETATE 667MG CAPSULE PO SCH ×3 (12:26→21:06)
[2019-12-02] MEDS: HYDROCODONE/ACETAMINOPHEN 5/325MG TABLET PO PRN ×2 (12:27→20:22)
[2019-12-02] MEDS ORDERED: HYDR100T26 PO (13:06)
[2019-12-02] MEDS ORDERED: NIFE30TA83 PO (13:06)
[2019-12-02] MEDS ORDERED: LOSA50TA3 PO (13:06)
[2019-12-02] MEDS ORDERED: HYDROCODONE/ACETAMINOPHEN 5/325MG TABLET PO SCH (14:00)
[2019-12-02] MEDS ORDERED: MORPHINE SULFATE 2 MG/ML CPJ (NOT FOR IM USE) IV NR (18:45)
[2019-12-02] MEDS: CLONIDINE 0.1MG TABLET PO PRN (18:57)
[2019-12-02] MEDS ORDERED: EPOETIN ALFA 10000UNITS/ML VIAL SUBCUT SCH (21:00)
[2019-12-03] VITALS: BP 124/68
[2019-12-03] MEDS: HYDROCODONE/ACETAMINOPHEN 5/325MG TABLET PO PRN (01:00)
[2019-12-03 04:00] VITALS: BP 140/64
[2019-12-03] MEDS: MORPHINE SULFATE 2 MG/ML CPJ (NOT FOR IM USE) IV PRN ×2 (04:27→10:41)
[2019-12-03] MEDS: DIPHENHYDRAMINE 50MG/ML VIAL IV PRN ×2 (06:09→13:53)
[2019-12-03 09:19] VITALS: BP 140/72
[2019-12-03] MEDS: CALCIUM ACETATE 667MG CAPSULE PO SCH ×4 (09:22→18:24)
[2019-12-03] MEDS: NIFEDIPINE XL 30MG TAB PO SCH (09:22)
[2019-12-03] MEDS: LOSARTAN POTASSIUM 50 MG TABLET PO SCH (09:22)
[2019-12-03 12:00] VITALS: BP 97/46
[2019-12-03 16:00] VITALS: BP 124/59
[2019-12-03] MEDS ORDERED: HYDR-4001 PO (17:33)
[2019-12-03 18:37] VITALS: BP 124/59
== END 2019-12-03 19:00 | disposition home or self-care (01) | DRG 205 ==
LOC: EDBD 21:00 → ER 21:00 → 6WST 11-28 02:49 → EDBEDREQTM 11-28 03:08 → EDBEDREQDT 11-28 03:08 → EDBEDREQ 11-28 03:08 → ENRESERV 11-28 20:45 → 6WST 11-28 23:06
PROVIDERS: ADMIT Family Medicine Adult Medicine; ATTEND Family Medicine Adult Medicine
PROC: 5A1D70Z Performance of Urinary Filtration, Intermittent, Less than 6 Hours Per Day (ICD-10-PCS; principal; 2019-11-29)
PROC: 5A1D70Z Performance of Urinary Filtration, Intermittent, Less than 6 Hours Per Day (ICD-10-PCS; 2019-12-01)
PROC: 0JH63XZ Insertion of Tunneled Vascular Access Device into Chest Subcutaneous Tissue and Fascia, Percutaneous Approach (ICD-10-PCS; 2019-12-02)
PROC: 02HV33Z Insertion of Infusion Device into Superior Vena Cava, Percutaneous Approach (ICD-10-PCS; 2019-12-02)
PROC: B5181ZA Fluoroscopy of Superior Vena Cava using Low Osmolar Contrast, Guidance (ICD-10-PCS; 2019-12-02)
PROC: B548ZZA Ultrasonography of Superior Vena Cava, Guidance (ICD-10-PCS; 2019-12-02)
DX: M94.0 Chondrocostal junction syndrome [Tietze] (principal); N18.6 End stage renal disease; I13.2 Hypertensive heart and chronic kidney disease with heart failure and with stage 5 chronic kidney disease, or end stage renal disease; T82.42XA Displacement of vascular dialysis catheter, initial encounter; I69.351 Hemiplegia and hemiparesis following cerebral infarction affecting right dominant side; D63.8 Anemia in other chronic diseases classified elsewhere; J06.9 Acute upper respiratory infection, unspecified; Y84.1 Kidney dialysis as the cause of abnormal reaction of the patient, or of later complication, without mention of misadventure at the time of the procedure; Y92.230 Patient room in hospital as the place of occurrence of the external cause; I50.9 Heart failure, unspecified; Z79.899 Other long term (current) drug therapy; Z86.79 Personal history of other diseases of the circulatory system; Z91.041 Radiographic dye allergy status; Z99.2 Dependence on renal dialysis; Z88.8 Allergy status to other drugs, medicaments and biological substances; Z79.82 Long term (current) use of aspirin
CPT/HCPCS: 36415; 36558; 71045; 71250; 76937; 77001; 80048; 80053; 80305; 81003; 83540; 83550; 83605; 83880; 84484; 85014; 85018; 85025; 86850; 86870; 86900; 86920; 93005; 96374; 96375; 96376; 99152; 99153; 99285; C1750; J0360; J0690; J0885; J1200; J1642; J2270; J2405; J3010; J3490; G0500

== ENCOUNTER 2019-12-21 04:13 | Inpatient (IN) | payer MEDICARE, MEDICAID ==
[~2019-12-21] VITALS: Ht 162.6 cm; Wt 81.6 kg
[~2019-12-21 04:13] MED LIST changes: -AMLO10TA80 PO; -ASPI-1393 PO; +ASPI-1497 PO; +LOSA50TA3 PO; +NIFE-33 PO
[2019-12-21] MEDS ORDERED: ONDANSETRON HCL 4MG/2ML INJ IV ONE (06:15)
[2019-12-21] MEDS ORDERED: ACETAMINOPHEN 325MG TABLET PO ONE (06:15)
[2019-12-21 07:49] LABS: CHLORIDE 103 mEq/L (98-107)
[2019-12-21 07:54] LABS: EOSINOPHILS % 13.2 % (0.0-5.0); HEMATOCRIT. 28.6 % (36.0-48.0); HEMOGLOBIN. 9.7 g/dL (12.0-16.0); LYMPHOCYTES % 21.1 % (20.0-50.0); MEAN CORPUSCULAR HEMOGLOBIN 30.7 pg (28.0-32.0); MEAN CORPUSCULAR VOLUME 90.7 fL (81.0-99.0); MEAN PLATELET VOLUME 7.5 fl (7.4-10.4); MONOCYTES % 7.4 % (2.0-8.0); NEUTROPHILS % 57.3 % (40.0-76.0); PLATELET 183 x1000/uL (130-400); RED BLOOD CELL COUNT 3.16 mill/uL (4.2-5.4); RED CELL DISTRIBUTION WIDTH 18.4 % (11.6-14.6)
[2019-12-21] MEDS ORDERED: FUROSEMIDE 40MG/4ML VIAL IVP ONE (08:30)
[2019-12-21] MEDS ORDERED: MORPHINE SULFATE 2 MG/ML CPJ (NOT FOR IM USE) IV ONE (08:30)
[2019-12-21] MEDS ORDERED: IPRATROPIUM/ALBUTEROL 0.5-3(2.5)MG/3ML NEB HHN PRN (09:30)
[2019-12-21] MEDS ORDERED: GUAIFENESIN 200MG/10ML SUGAR FREE UDC PO PRN (09:30)
[2019-12-21] MEDS ORDERED: ONDANSETRON HCL 4MG/2ML INJ IV PRN (09:30)
[2019-12-21] MEDS ORDERED: ACETAMINOPHEN 325MG TABLET PO PRN (09:30)
[2019-12-21] MEDS ORDERED: CLONIDINE 0.1MG TABLET PO PRN (09:30)
[2019-12-21 09:38] LABS: PHOSPHORUS 5.2 mg/dL (2.5-4.9)
[2019-12-21] MEDS: MORPHINE SULFATE 2 MG/ML CPJ (NOT FOR IM USE) IV PRN ×2 (13:26→20:02)
[2019-12-21 14:28] LABS: CLARITY URINE CLEAR (CLEAR); COLOR URINE YELLOW (YELLOW); KETONES URINE NEGATIVE (NEGATIVE); LEUKOCYTE ESTERASE URINE 1+ (NEGATIVE); NITRITE URINE NEGATIVE (NEGATIVE); OCCULT BLOOD URINE NEGATIVE (NEGATIVE); PH URINE 7.5 (4.5-8.0); PROTEIN URINE TRACE (NEGATIVE); SPECIFIC GRAVITY URINE 1.012 (1.005-1.030); UROBILINOGEN URINE 0.2 E.U./dL (0.2-1.0)
[2019-12-21] MEDS: DIPHENHYDRAMINE 50MG/ML VIAL IV PRN ×2 (17:36→22:45)
[2019-12-21 17:54] VITALS: BP 123/53
[2019-12-21 18:02] VITALS: BP 123/53
[2019-12-21 20:00] VITALS: BP 142/80
[2019-12-22] VITALS: BP 136/78
[2019-12-22] MEDS: PANTOPRAZOLE 40MG DR TABLET PO SCH ×3 (00:10→21:21)
[2019-12-22] MEDS: MORPHINE SULFATE 2 MG/ML CPJ (NOT FOR IM USE) IV PRN ×5 (00:11→23:13)
[2019-12-22] MEDS: DIPHENHYDRAMINE 50MG/ML VIAL IV PRN ×4 (02:45→21:21)
[2019-12-22 04:00] VITALS: BP 135/77
[2019-12-22 06:51] LABS: EOSINOPHILS % 15.2 % (0.0-5.0); HEMATOCRIT. 30.2 % (36.0-48.0); HEMOGLOBIN. 9.9 g/dL (12.0-16.0); LYMPHOCYTES % 31.2 % (20.0-50.0); MEAN CORPUSCULAR HEMOGLOBIN 31.1 pg (28.0-32.0); MEAN CORPUSCULAR VOLUME 94.3 fL (81.0-99.0); MEAN PLATELET VOLUME 7.4 fl (7.4-10.4); MONOCYTES % 10.6 % (2.0-8.0); PLATELET 160 x1000/uL (130-400); RED CELL DISTRIBUTION WIDTH 19.2 % (11.6-14.6)
[2019-12-22 07:56] VITALS: BP 138/76
[2019-12-22 08:00] LABS: CHLORIDE 111 mEq/L (98-107)
[2019-12-22 08:09] LABS: LDL CHOLESTEROL 128 mg/dL (5-100)
[2019-12-22 08:11] LABS: HDL CHOLESTEROL 50 mg/dL (40-59)
[2019-12-22] MEDS: FLUCONAZOLE 100MG TABLET PO SCH (08:52)
[2019-12-22 12:07] VITALS: BP 181/91
[2019-12-22] MEDS ORDERED: POLYETHYLENE GLYCOL 3350 (17GM) 1 DOSE PACK PO PRN (14:15)
[2019-12-22] MEDS: HYDRALAZINE HCL 50MG TABLET PO SCH ×2 (15:47→21:22)
[2019-12-22] MEDS: LOSARTAN POTASSIUM 50 MG TABLET PO SCH (15:48)
[2019-12-22] MEDS: CARVEDILOL 6.25 MG TABLET PO SCH (15:48)
[2019-12-22 16:00] VITALS: BP 174/91
[2019-12-22] MEDS: SUCRALFATE 1G TABLET PO SCH ×2 (17:42→21:21)
[2019-12-22 20:00] VITALS: BP 158/97
[2019-12-22] MEDS: NIFEDIPINE XL 30MG TAB PO SCH (21:22)
[2019-12-23] VITALS: BP 145/87
[2019-12-23] MEDS: MORPHINE SULFATE 2 MG/ML CPJ (NOT FOR IM USE) IV PRN ×3 (03:51→15:30)
[2019-12-23 04:00] VITALS: BP 156/89
[2019-12-23 05:19] LABS: BASOPHILS % 0.5 % (0.0-2.0); HEMATOCRIT. 29.2 % (36.0-48.0); HEMOGLOBIN. 9.4 g/dL (12.0-16.0); LYMPHOCYTES % 16.7 % (20.0-50.0); MEAN CORPUSCULAR HEMOGLOBIN 30.2 pg (28.0-32.0); MEAN CORPUSCULAR VOLUME 93.5 fL (81.0-99.0); MEAN PLATELET VOLUME 7.7 fl (7.4-10.4); NEUTROPHILS % 62.8 % (40.0-76.0); PLATELET 169 x1000/uL (130-400); RED BLOOD CELL COUNT 3.12 mill/uL (4.2-5.4); RED CELL DISTRIBUTION WIDTH 18.4 % (11.6-14.6)
[2019-12-23] MEDS: DIPHENHYDRAMINE 50MG/ML VIAL IV PRN ×3 (05:39→15:56)
[2019-12-23 08:00] VITALS: BP 142/89
[2019-12-23] MEDS ORDERED: ASPIRIN 81MG EC TABLET PO SCH (09:00)
[2019-12-23] MEDS: NIFEDIPINE XL 30MG TAB PO SCH (09:13)
[2019-12-23] MEDS: PANTOPRAZOLE 40MG DR TABLET PO SCH (09:13)
[2019-12-23] MEDS: SUCRALFATE 1G TABLET PO SCH ×3 (09:13→17:00)
[2019-12-23] MEDS: FLUCONAZOLE 100MG TABLET PO SCH (09:13)
[2019-12-23] MEDS: HYDRALAZINE HCL 50MG TABLET PO SCH ×3 (09:14→17:00)
[2019-12-23] MEDS: CARVEDILOL 6.25 MG TABLET PO SCH ×2 (09:14→17:00)
[2019-12-23] MEDS: LOSARTAN POTASSIUM 50 MG TABLET PO SCH (09:14)
[2019-12-23 12:00] VITALS: BP 140/72
[2019-12-23] MEDS ORDERED: HEPARIN SODIUM 1,000 UNIT/1ML VIAL IV NR (12:30)
[2019-12-23] MEDS ORDERED: COR6 PO (14:38)
[2019-12-23] MEDS ORDERED: FLUC100T PO (14:38)
[2019-12-23 16:00] VITALS: BP 139/70
[2019-12-23 17:51] VITALS: BP 138/65
[2019-12-23 22:27] LABS: CLARITY URINE CLEAR (CLEAR); COLOR URINE YELLOW (YELLOW); KETONES URINE NEGATIVE (NEGATIVE); LEUKOCYTE ESTERASE URINE 2+ (NEGATIVE); NITRITE URINE NEGATIVE (NEGATIVE); OCCULT BLOOD URINE NEGATIVE (NEGATIVE); PH URINE 5.5 (4.5-8.0); PROTEIN URINE 1+ (NEGATIVE); SPECIFIC GRAVITY URINE 1.017 (1.005-1.030); UROBILINOGEN URINE 0.2 E.U./dL (0.2-1.0)
== END 2019-12-23 18:10 | disposition home or self-care (01) | DRG 391 ==
LOC: ER 04:13 → 7WST 09:00 → ENRESERV 15:56
PROVIDERS: ADMIT Internal Medicine; ATTEND Internal Medicine
PROC: 5A1D70Z Performance of Urinary Filtration, Intermittent, Less than 6 Hours Per Day (ICD-10-PCS; principal; 2019-12-21)
PROC: 5A1D70Z Performance of Urinary Filtration, Intermittent, Less than 6 Hours Per Day (ICD-10-PCS; 2019-12-23)
DX: K29.70 Gastritis, unspecified, without bleeding (principal); N18.6 End stage renal disease; N39.0 Urinary tract infection, site not specified; I13.2 Hypertensive heart and chronic kidney disease with heart failure and with stage 5 chronic kidney disease, or end stage renal disease; K52.9 Noninfective gastroenteritis and colitis, unspecified; B37.9 Candidiasis, unspecified; D63.8 Anemia in other chronic diseases classified elsewhere; E83.39 Other disorders of phosphorus metabolism; N18.9 Chronic kidney disease, unspecified; E83.41 Hypermagnesemia; I50.9 Heart failure, unspecified; K57.90 Diverticulosis of intestine, part unspecified, without perforation or abscess without bleeding; I71.4 Abdominal aortic aneurysm, without rupture; Z91.041 Radiographic dye allergy status; Z82.49 Family history of ischemic heart disease and other diseases of the circulatory system; Z88.8 Allergy status to other drugs, medicaments and biological substances; Z99.2 Dependence on renal dialysis; Z86.73 Personal history of transient ischemic attack (TIA), and cerebral infarction without residual deficits; Z79.899 Other long term (current) drug therapy; Z95.2 Presence of prosthetic heart valve; Z95.828 Presence of other vascular implants and grafts
CPT/HCPCS: 36415; 71045; 74176; 80048; 80053; 80061; 81003; 83735; 83880; 84100; 84443; 84484; 85025; 93005; 93306; 93970; 99285; J1200; J1644; J1940; J2270; J2405

== ENCOUNTER 2020-08-10 23:58 | Inpatient (IN) | payer MEDICARE, MEDICAID ==
[~2020-08-10] VITALS: Ht 165.1 cm; Wt 81.9 kg
[~2020-08-10 23:58] MED LIST changes: -COR12 PO; +COR6 PO; +FLUC100T PO; -LINE600T14 MT; -METO-539 PO
[2020-08-11] MEDS ORDERED: NITROGLYCERIN OINT 1GM/INCH UDPKT TD ONE (00:45)
[2020-08-11] MEDS ORDERED: ASPIRIN 81MG TABLET PO ONE (00:45)
[2020-08-11 01:45] LABS: CHLORIDE 104 mEq/L (98-107)
[2020-08-11 01:48] LABS: BASOPHILS % 0.8 % (0.0-2.0); EOSINOPHILS % 7.7 % (0.0-5.0); HEMATOCRIT. 30.6 % (36.0-48.0); HEMOGLOBIN. 10.2 g/dL (12.0-16.0); LYMPHOCYTES % 26.4 % (20.0-50.0); MEAN CORPUSCULAR HEMOGLOBIN 30.1 pg (28.0-32.0); MEAN CORPUSCULAR VOLUME 90.6 fL (81.0-99.0); MEAN PLATELET VOLUME 7.4 fl (7.4-10.4); NEUTROPHILS % 56.1 % (40.0-76.0); PLATELET 147 x1000/uL (130-400); RED BLOOD CELL COUNT 3.38 mill/uL (4.2-5.4); RED CELL DISTRIBUTION WIDTH 15.8 % (11.6-14.6)
[2020-08-11] MEDS ORDERED: MORPHINE SULFATE 4 MG/ML CPJ (NOT FOR IM USE) IV ONE (05:00)
[2020-08-11] MEDS ORDERED: LABETALOL 5MG/ML SYR 20 MG/4 ML SYRINGE IV ONE (05:00)
[2020-08-11] MEDS ORDERED: LORAZEPAM 0.5MG TABLET PO PRN (07:45)
[2020-08-11] MEDS ORDERED: ACETAMINOPHEN 325MG TABLET PO PRN ×2 (07:45)
[2020-08-11] MEDS ORDERED: IPRATROPIUM/ALBUTEROL 0.5-3(2.5)MG/3ML NEB NEB PRN (07:45)
[2020-08-11] MEDS ORDERED: ONDANSETRON HCL 4MG/2ML INJ IV PRN (07:45)
[2020-08-11] MEDS ORDERED: ENOXAPARIN 40MG/0.4ML SYR SUBCUT SCH (07:45)
[2020-08-11] MEDS ORDERED: GUAIFENESIN 200MG/10ML SUGAR FREE UDC PO PRN (07:45)
[2020-08-11] MEDS ORDERED: MAGNESIUM/ALUMINUM HYDROXIDE/SIMETHICONE 30ML UDC PO PRN (07:45)
[2020-08-11] MEDS ORDERED: NITROGLYCERIN 0.4MG TABLET SL SL PRN (07:45)
[2020-08-11] MEDS ORDERED: CLONIDINE 0.1MG TABLET PO PRN (07:45)
[2020-08-11] MEDS ORDERED: DOCUSATE SODIUM 100MG CAPSULE PO PRN (07:45)
[2020-08-11 09:00] VITALS: BP 170/92
[2020-08-11] MEDS: ASCORBIC ACID 500 MG TABLET PO SCH ×3 (09:00→22:00)
[2020-08-11] MEDS: ZINC SULFATE 220 MG ( 50 ) CAPSULE PO SCH ×2 (09:00→10:03)
[2020-08-11] MEDS: SEVELAMER CARBONATE 800 MG TABLET PO SCH ×3 (10:02→16:56)
[2020-08-11] MEDS: DIPHENHYDRAMINE 50MG/ML VIAL IV PRN ×3 (10:03→23:16)
[2020-08-11] MEDS: NIFEDIPINE XL 30MG TAB PO SCH (10:03)
[2020-08-11] MEDS: FAMOTIDINE 20MG TABLET PO SCH (10:03)
[2020-08-11] MEDS: ENOXAPARIN 30MG/0.3ML SYR SUBCUT SCH (10:04)
[2020-08-11 12:00] VITALS: BP 167/99
[2020-08-11] MEDS: TRAMADOL 50MG TABLET PO PRN (13:07)
[2020-08-11] MEDS: HYDRALAZINE HCL 50MG TABLET PO SCH ×2 (13:07→22:00)
[2020-08-11 16:00] VITALS: BP 153/85
[2020-08-11] MEDS: CARVEDILOL 6.25 MG TABLET PO SCH (17:10)
[2020-08-11 20:00] VITALS: BP 118/69
[2020-08-11 20:19] LABS: CREATINE KINASE MB FRACTION 1.3 ng/mL (0.5-3.6)
[2020-08-12] VITALS: BP 156/85
[2020-08-12 04:00] VITALS: BP 132/76
[2020-08-12] MEDS: HYDRALAZINE HCL 50MG TABLET PO SCH ×3 (05:06→21:00)
[2020-08-12] MEDS: CARVEDILOL 6.25 MG TABLET PO SCH ×2 (05:06→17:22)
[2020-08-12] MEDS: DIPHENHYDRAMINE 50MG/ML VIAL IV PRN ×3 (05:06→21:00)
[2020-08-12 06:53] LABS: BASOPHILS % 0.9 % (0.0-2.0); EOSINOPHILS % 10.1 % (0.0-5.0); HEMATOCRIT. 32.9 % (36.0-48.0); HEMOGLOBIN. 10.8 g/dL (12.0-16.0); LYMPHOCYTES % 34.1 % (20.0-50.0); MEAN CORPUSCULAR HEMOGLOBIN 30.5 pg (28.0-32.0); MEAN CORPUSCULAR VOLUME 92.9 fL (81.0-99.0); MONOCYTES % 9.2 % (2.0-8.0); NEUTROPHILS % 45.7 % (40.0-76.0); RED BLOOD CELL COUNT 3.54 mill/uL (4.2-5.4); RED CELL DISTRIBUTION WIDTH 16.1 % (11.6-14.6)
[2020-08-12 07:14] LABS: CREATINE KINASE MB FRACTION 1.1 ng/mL (0.5-3.6)
[2020-08-12 07:58] VITALS: BP 146/81
[2020-08-12] MEDS ORDERED: REGADENOSON 0.4 MG/5 ML IV NR (08:15)
[2020-08-12] MEDS ORDERED: ASPIRIN 325MG EC TABLET PO SCH (09:00)
[2020-08-12] MEDS: SEVELAMER CARBONATE 800 MG TABLET PO SCH ×3 (09:24→17:22)
[2020-08-12] MEDS: ASCORBIC ACID 500 MG TABLET PO SCH ×2 (09:25→21:00)
[2020-08-12] MEDS: ENOXAPARIN 30MG/0.3ML SYR SUBCUT SCH (09:25)
[2020-08-12] MEDS: FAMOTIDINE 20MG TABLET PO SCH (09:25)
[2020-08-12] MEDS: ZINC SULFATE 220 MG ( 50 ) CAPSULE PO SCH (09:25)
[2020-08-12] MEDS: NIFEDIPINE XL 30MG TAB PO SCH (09:25)
[2020-08-12 10:05] LABS: MEAN PLATELET VOLUME 7.9 fl (7.4-10.4); PLATELET 169 x1000/uL (130-400)
[2020-08-12 12:00] VITALS: BP 139/78
[2020-08-12] MEDS: TRAMADOL 50MG TABLET PO PRN (14:41)
[2020-08-12 16:00] VITALS: BP 150/91
[2020-08-12] MEDS: ISOSORBIDE MONONITRATE 30MG TABLET SR 24HR PO SCH (18:16)
[2020-08-12 20:00] VITALS: BP 137/86
[2020-08-13] VITALS: BP 149/80
[2020-08-13] MEDS: DIPHENHYDRAMINE 50MG/ML VIAL IV PRN ×4 (03:19→18:57)
[2020-08-13 04:00] VITALS: BP 147/87
[2020-08-13] MEDS: SEVELAMER CARBONATE 800 MG TABLET PO SCH ×3 (06:28→16:22)
[2020-08-13] MEDS: CARVEDILOL 6.25 MG TABLET PO SCH ×2 (06:28→18:56)
[2020-08-13] MEDS: HYDRALAZINE HCL 50MG TABLET PO SCH ×3 (06:28→21:09)
[2020-08-13 07:16] LABS: BASOPHILS % 0.8 % (0.0-2.0); HEMATOCRIT. 30.6 % (36.0-48.0); HEMOGLOBIN. 10.2 g/dL (12.0-16.0); LYMPHOCYTES % 26.2 % (20.0-50.0); MEAN CORPUSCULAR HEMOGLOBIN 30.5 pg (28.0-32.0); MEAN CORPUSCULAR VOLUME 91.2 fL (81.0-99.0); RED BLOOD CELL COUNT 3.35 mill/uL (4.2-5.4); RED CELL DISTRIBUTION WIDTH 15.9 % (11.6-14.6)
[2020-08-13 08:00] VITALS: BP 143/86
[2020-08-13 08:14] LABS: PLATELET 145 x1000/uL (130-400)
[2020-08-13] MEDS: CLOPIDOGREL 75MG TABLET PO SCH (09:24)
[2020-08-13] MEDS: ISOSORBIDE MONONITRATE 30MG TABLET SR 24HR PO SCH (09:24)
[2020-08-13] MEDS: ZINC SULFATE 220 MG ( 50 ) CAPSULE PO SCH (09:24)
[2020-08-13] MEDS: ASCORBIC ACID 500 MG TABLET PO SCH ×2 (09:24→21:09)
[2020-08-13] MEDS: FAMOTIDINE 20MG TABLET PO SCH (09:24)
[2020-08-13] MEDS: NIFEDIPINE XL 30MG TAB PO SCH (09:24)
[2020-08-13] MEDS: ASPIRIN 81MG EC TABLET PO SCH (09:24)
[2020-08-13] MEDS: ENOXAPARIN 30MG/0.3ML SYR SUBCUT SCH (09:25)
[2020-08-13 12:00] VITALS: BP 129/75
[2020-08-13 16:00] VITALS: BP 114/55
[2020-08-13 20:00] VITALS: BP 125/73
[2020-08-14] VITALS: BP 118/79
[2020-08-14] MEDS: DIPHENHYDRAMINE 50MG/ML VIAL IV PRN ×2 (01:24→09:39)
[2020-08-14 04:00] VITALS: BP 108/52
[2020-08-14] MEDS: HYDRALAZINE HCL 50MG TABLET PO SCH (06:00)
[2020-08-14] MEDS: CARVEDILOL 6.25 MG TABLET PO SCH (06:00)
[2020-08-14 08:00] VITALS: BP 93/60
[2020-08-14] MEDS: ISOSORBIDE MONONITRATE 30MG TABLET SR 24HR PO SCH (09:00)
[2020-08-14] MEDS: NIFEDIPINE XL 30MG TAB PO SCH (09:00)
[2020-08-14] MEDS: ASPIRIN 81MG EC TABLET PO SCH (09:39)
[2020-08-14] MEDS: CLOPIDOGREL 75MG TABLET PO SCH (09:39)
[2020-08-14] MEDS: ASCORBIC ACID 500 MG TABLET PO SCH (09:39)
[2020-08-14] MEDS: FAMOTIDINE 20MG TABLET PO SCH (09:39)
[2020-08-14] MEDS: ENOXAPARIN 30MG/0.3ML SYR SUBCUT SCH (09:39)
[2020-08-14] MEDS: SEVELAMER CARBONATE 800 MG TABLET PO SCH (09:39)
[2020-08-14] MEDS: ZINC SULFATE 220 MG ( 50 ) CAPSULE PO SCH (09:39)
[2020-08-14 10:48] VITALS: BP 93/60
[2020-08-14 12:00] VITALS: BP 101/61
== END 2020-08-14 12:19 | disposition home or self-care (01) | DRG 280 ==
LOC: ER 23:58 → 5WST 08-11 04:49 → EDBEDREQTM 08-11 04:55 → EDBEDREQ 08-11 04:55 → SUPCPDRO 08-11 07:31 → ENRESERV 08-11 08:03
PROVIDERS: ADMIT Internal Medicine; ATTEND Internal Medicine
PROC: 5A1D70Z Performance of Urinary Filtration, Intermittent, Less than 6 Hours Per Day (ICD-10-PCS; principal; 2020-08-11)
PROC: 5A1D70Z Performance of Urinary Filtration, Intermittent, Less than 6 Hours Per Day (ICD-10-PCS; 2020-08-12)
DX: I21.4 Non-ST elevation (NSTEMI) myocardial infarction (principal); I50.33 Acute on chronic diastolic (congestive) heart failure; N18.6 End stage renal disease; I71.00 Dissection of unspecified site of aorta; I13.2 Hypertensive heart and chronic kidney disease with heart failure and with stage 5 chronic kidney disease, or end stage renal disease; I16.1 Hypertensive emergency; D63.8 Anemia in other chronic diseases classified elsewhere; M94.0 Chondrocostal junction syndrome [Tietze]; I25.10 Atherosclerotic heart disease of native coronary artery without angina pectoris; Z86.73 Personal history of transient ischemic attack (TIA), and cerebral infarction without residual deficits; Z99.2 Dependence on renal dialysis; Z95.1 Presence of aortocoronary bypass graft; Z91.041 Radiographic dye allergy status; Z79.891 Long term (current) use of opiate analgesic; Z79.899 Other long term (current) drug therapy
CPT/HCPCS: 36415; 71045; 80048; 80053; 80061; 82550; 82553; 83036; 83880; 84484; 85025; 93005; 93970; 96374; 97116; 97162; 99285; J1200; J1650; J2270; J3490

== ENCOUNTER 2020-09-21 22:51 | Emergency (ER) | payer MEDICARE, MEDICAID ==
[~2020-09-21] VITALS: Ht 160 cm; Wt 82.0 kg
[2020-09-21] MEDS ORDERED: ONDANSETRON HCL 4MG/2ML INJ IV STA (23:23)
[2020-09-21] MEDS ORDERED: MORPHINE SULFATE 4 MG/ML CPJ (NOT FOR IM USE) IV STA (23:23)
[2020-09-22 02:20] LABS: BASOPHILS % 0.3 % (0.0-2.0); EOSINOPHILS % 6.1 % (0.0-5.0); HEMATOCRIT. 28.1 % (36.0-48.0); HEMOGLOBIN. 9.2 g/dL (12.0-16.0); LYMPHOCYTES % 22.6 % (20.0-50.0); MEAN CORPUSCULAR HEMOGLOBIN 31.1 pg (28.0-32.0); MEAN CORPUSCULAR VOLUME 94.8 fL (81.0-99.0); MEAN PLATELET VOLUME 7.5 fl (7.4-10.4); MONOCYTES % 5.4 % (2.0-8.0); NEUTROPHILS % 65.6 % (40.0-76.0); PLATELET 148 x1000/uL (130-400); RED BLOOD CELL COUNT 2.96 mill/uL (4.2-5.4)
[2020-09-22 02:33] LABS: CHLORIDE 107 mEq/L (98-107)
[2020-09-22 05:05] VITALS: BP 146/74
== END 2020-09-22 05:15 | disposition home or self-care (01) ==
LOC: ER 22:51 → EDBD 22:51 → ER 09-22 05:15
DX: M79.602 Pain in left arm (principal); N18.6 End stage renal disease; I13.2 Hypertensive heart and chronic kidney disease with heart failure and with stage 5 chronic kidney disease, or end stage renal disease; Z99.2 Dependence on renal dialysis; Z98.890 Other specified postprocedural states; Z79.899 Other long term (current) drug therapy
CPT/HCPCS: 36415; 71045; 80053; 83605; 84484; 85025; 93005; 93922; 93971; 96374; 96375; 99285; J2270; J2405

== ENCOUNTER 2023-04-27 06:12 | Inpatient (IN) | payer MEDICARE, MEDICAID ==
[~2023-04-27] VITALS: Ht 160 cm; Wt 74.8 kg
[~2023-04-27 06:12] MED LIST changes: +ASPI-1079 PO; +CALC667T2 MT; +COR12 PO; +HYDR-4135 MT; +LOSA-413 PO; -LOSA50TA3 PO; +LOSA50TA41 MT; +PROT40 PO
[2023-04-27 06:42] LABS: BASOPHILS % 1.5 % (0.0-2.0); EOSINOPHILS % 5.4 % (0.0-5.0); HEMATOCRIT. 33.5 % (36.0-48.0); HEMOGLOBIN. 10.8 g/dL (12.0-16.0); LYMPHOCYTES % 35.9 % (20.0-50.0); MEAN CORPUSCULAR HEMOGLOBIN 29.1 pg (28.0-32.0); MEAN CORPUSCULAR VOLUME 90.4 fL (81.0-99.0); MEAN PLATELET VOLUME 7.1 fl (7.4-10.4); MONOCYTES % 11.9 % (2.0-8.0); NEUTROPHILS % 45.3 % (40.0-76.0); PLATELET 154 x1000/uL (130-400); RED BLOOD CELL COUNT 3.71 mill/uL (4.2-5.4); RED CELL DISTRIBUTION WIDTH 19.6 % (11.6-14.6)
[2023-04-27 06:56] LABS: CHLORIDE 95 mEq/L (98-107)
[2023-04-27] MEDS ORDERED: DIPHENHYDRAMINE 50MG/ML VIAL IV ONE (09:30)
[2023-04-27] MEDS ORDERED: NITROGLYCERIN 0.4MG TABLET SL SL PRN (10:45)
[2023-04-27] MEDS ORDERED: MAGNESIUM/ALUMINUM HYDROXIDE/SIMETHICONE 30ML UDC PO PRN (10:45)
[2023-04-27] MEDS ORDERED: ONDANSETRON HCL 4MG/2ML INJ IV PRN (10:45)
[2023-04-27] MEDS ORDERED: IPRATROPIUM/ALBUTEROL 0.5-3(2.5)MG/3ML NEB NEB PRN (10:45)
[2023-04-27] MEDS ORDERED: DOCUSATE SODIUM 100MG CAPSULE PO PRN (10:45)
[2023-04-27] MEDS ORDERED: HYDRALAZINE HCL 25MG TABLET PO NR (10:45)
[2023-04-27] MEDS ORDERED: CARVEDILOL 6.25 MG TABLET PO NR (10:45)
[2023-04-27] MEDS ORDERED: CLONIDINE 0.1MG TABLET PO PRN (10:45)
[2023-04-27] MEDS ORDERED: ZOLPIDEM TARTRATE 5MG TABLET PO PRN (10:45)
[2023-04-27] MEDS ORDERED: ACETAMINOPHEN 325MG TABLET PO PRN (10:45)
[2023-04-27] MEDS ORDERED: GUAIFENESIN 200MG/10ML SUGAR FREE UDC PO PRN (10:45)
[2023-04-27] MEDS: ENOXAPARIN 40MG/0.4ML SYR SUBCUT SCH (11:00)
[2023-04-27] MEDS ORDERED: FAMOTIDINE 20MG TABLET PO SCH ×2 (11:30→21:00)
[2023-04-27 11:31] VITALS: BP 200/77
[2023-04-27 12:00] VITALS: BP 210/107
[2023-04-27] MEDS ORDERED: ASPIRIN 325MG EC TABLET PO SCH (12:00)
[2023-04-27] MEDS: AMLODIPINE 10MG TABLET PO SCH (12:17)
[2023-04-27] MEDS: HYDRALAZINE 20MG/ML VIAL IV PRN (14:18)
[2023-04-27 16:00] VITALS: BP 141/69
[2023-04-27] MEDS: DIPHENHYDRAMINE 50MG/ML VIAL IV PRN (17:32)
[2023-04-27] MEDS: HYDRALAZINE HCL 50MG TABLET PO SCH ×2 (17:42→22:00)
[2023-04-27 20:00] VITALS: BP 127/66
[2023-04-27] MEDS: CARVEDILOL 3.125 MG TABLET PO SCH (21:00)
[2023-04-27 23:50] VITALS: BP 141/75
[2023-04-27 23:55] VITALS: BP 139/58
[2023-04-28] VITALS (14 sets, daily range): BP systolic 84–175; BP diastolic 53–93
[2023-04-28] MEDS: DIPHENHYDRAMINE 50MG/ML VIAL IV PRN (00:01)
[2023-04-28 00:57] LABS: CREATINE KINASE MB FRACTION 1.7 ng/mL (0.5-3.6)
[2023-04-28 01:09] LABS: HEPATITIS B SURFACE ANTIGEN NEGATIVE
[2023-04-28 05:33] LABS: EOSINOPHILS % 5.3 % (0.0-5.0); HEMATOCRIT. 36.5 % (36.0-48.0); HEMOGLOBIN. 11.8 g/dL (12.0-16.0); LYMPHOCYTES % 27.2 % (20.0-50.0); MEAN CORPUSCULAR HEMOGLOBIN 29.3 pg (28.0-32.0); MEAN CORPUSCULAR VOLUME 90.5 fL (81.0-99.0); MEAN PLATELET VOLUME 7.5 fl (7.4-10.4); MONOCYTES % 9.6 % (2.0-8.0); NEUTROPHILS % 56.9 % (40.0-76.0); PLATELET 182 x1000/uL (130-400); RED BLOOD CELL COUNT 4.04 mill/uL (4.2-5.4); RED CELL DISTRIBUTION WIDTH 19.8 % (11.6-14.6)
[2023-04-28 05:47] LABS: CHLORIDE 97 mEq/L (98-107)
[2023-04-28 06:00] LABS: PHOSPHORUS 4.4 mg/dL (2.5-4.9)
[2023-04-28] MEDS: HYDRALAZINE HCL 50MG TABLET PO SCH ×3 (06:00→21:07)
[2023-04-28] MEDS: AMLODIPINE 10MG TABLET PO SCH (09:01)
[2023-04-28] MEDS: ENOXAPARIN 40MG/0.4ML SYR SUBCUT SCH (09:01)
[2023-04-28] MEDS: CARVEDILOL 3.125 MG TABLET PO SCH ×2 (09:01→21:07)
[2023-04-28] MEDS: ASPIRIN 81MG EC TABLET PO SCH (09:50)
[2023-04-29] VITALS (9 sets, daily range): BP systolic 113–184; BP diastolic 62–84
[2023-04-29] MEDS: HYDRALAZINE HCL 50MG TABLET PO SCH ×3 (06:52→22:54)
[2023-04-29] MEDS: ACETAMINOPHEN 325MG TABLET PO PRN (06:56)
[2023-04-29] MEDS: CARVEDILOL 3.125 MG TABLET PO SCH ×2 (09:00→20:29)
[2023-04-29] MEDS: AMLODIPINE 10MG TABLET PO SCH (09:00)
[2023-04-29] MEDS ORDERED: FAMOTIDINE 20MG TABLET PO SCH (09:00)
[2023-04-29] MEDS: DIPHENHYDRAMINE 50MG/ML VIAL IV PRN (09:33)
[2023-04-29] MEDS: ENOXAPARIN 40MG/0.4ML SYR SUBCUT SCH (09:33)
[2023-04-29] MEDS: ASPIRIN 81MG EC TABLET PO SCH (09:34)
[2023-04-30] VITALS: BP 122/64
[2023-04-30] MEDS: ACETAMINOPHEN 325MG TABLET PO PRN (03:09)
[2023-04-30 04:00] VITALS: BP 148/80
[2023-04-30] MEDS: HYDRALAZINE HCL 50MG TABLET PO SCH ×2 (06:37→13:12)
[2023-04-30 08:00] VITALS: BP 132/54
[2023-04-30] MEDS: ASPIRIN 81MG EC TABLET PO SCH (08:48)
[2023-04-30] MEDS: CARVEDILOL 3.125 MG TABLET PO SCH (08:48)
[2023-04-30] MEDS: AMLODIPINE 10MG TABLET PO SCH (08:48)
[2023-04-30] MEDS ORDERED: ENOXAPARIN 30MG/0.3ML SYR SUBCUT SCH (09:00)
[2023-04-30 10:11] VITALS: BP 132/54
[2023-04-30 12:00] VITALS: BP 150/77
[2023-04-30] MEDS: HYDRALAZINE 20MG/ML VIAL IV PRN (13:09)
== END 2023-04-30 14:45 | disposition home or self-care (01) | DRG 280 ==
LOC: ER 06:12 → 7EST 09:03
PROVIDERS: ADMIT Internal Medicine; ATTEND Internal Medicine
PROC: 5A1D70Z Performance of Urinary Filtration, Intermittent, Less than 6 Hours Per Day (ICD-10-PCS; principal; 2023-04-27)
PROC: 5A1D70Z Performance of Urinary Filtration, Intermittent, Less than 6 Hours Per Day (ICD-10-PCS; 2023-04-29)
DX: I13.2 Hypertensive heart and chronic kidney disease with heart failure and with stage 5 chronic kidney disease, or end stage renal disease (principal); I50.33 Acute on chronic diastolic (congestive) heart failure; I21.A1 Myocardial infarction type 2; I71.00 Dissection of unspecified site of aorta; N18.6 End stage renal disease; I16.1 Hypertensive emergency; E87.1 Hypo-osmolality and hyponatremia; D63.8 Anemia in other chronic diseases classified elsewhere; E11.22 Type 2 diabetes mellitus with diabetic chronic kidney disease; I45.10 Unspecified right bundle-branch block; I25.10 Atherosclerotic heart disease of native coronary artery without angina pectoris; Z99.2 Dependence on renal dialysis; Z88.8 Allergy status to other drugs, medicaments and biological substances; Z88.6 Allergy status to analgesic agent; Z91.041 Radiographic dye allergy status; Z79.899 Other long term (current) drug therapy; Z79.891 Long term (current) use of opiate analgesic; Z86.73 Personal history of transient ischemic attack (TIA), and cerebral infarction without residual deficits; Z95.3 Presence of xenogenic heart valve
CPT/HCPCS: 36415; 71045; 74176; 80053; 80061; 82550; 82553; 83036; 83735; 83880; 84100; 84484; 85025; 86705; 86709; 86803; 87340; 90935; 93005; 93306; 93970; 99285; J0360; J1200; J1650

== ENCOUNTER 2023-09-14 02:37 | Inpatient (IN) | payer MEDICARE, MEDICAID ==
[~2023-09-14] VITALS: Ht 160 cm; Wt 76.2 kg
[2023-09-14] VITALS (10 sets, daily range): BP systolic 137–185; BP diastolic 80–107; PULSE 75–85; RESP 18–20; TEMP 97.1–98.3
[~2023-09-14 02:37] MED LIST changes: +AMI2 PO; +ASCO500T20 PO; -ASPI-1079 PO; +ATOR40TA70 PO; +CALC0.253 PO; -CALC667T2 MT; -COR12 PO; -COR6 PO; +FERR-63 PO; -FLUC100T PO; -HYDR-4001 PO; -HYDR-4135 MT; -HYDR100T26 PO; +HYDR100T31 PO; -LOSA-413 PO; -LOSA50TA41 MT; +LOSA50TA41 PO; +LOV80 SQ; -NIFE-33 PO; -PANT40SU MT; -SUCR1TAB30 MT; +WARF4TAB71 PO
[2023-09-14 03:20] LABS: BASOPHILS % 1.1 % (0.0-2.0); EOSINOPHILS % 3.1 % (0.0-5.0); HEMATOCRIT. 37.6 % (36.0-48.0); HEMOGLOBIN. 12.2 g/dL (12.0-16.0); LYMPHOCYTES % 26.8 % (20.0-50.0); MEAN CORPUSCULAR HEMOGLOBIN 28.8 pg (28.0-32.0); MEAN CORPUSCULAR HGB CONC 32.5 g/dL (31.0-37.0); MEAN CORPUSCULAR VOLUME 88.6 fL (81.0-99.0); MEAN PLATELET VOLUME 7.2 fl (7.4-10.4); MONOCYTES % 10.4 % (2.0-8.0); NEUTROPHILS % 58.6 % (40.0-76.0); PLATELET 161 x1000/uL (130-400); RED BLOOD CELL COUNT 4.25 mill/uL (4.2-5.4); RED CELL DISTRIBUTION WIDTH 22.8 % (11.6-14.6)
[2023-09-14 03:28] LABS: CHLORIDE 99 mEq/L (98-107); INDEX HEMOLYSI 2 (1-3); INDEX ICTERIC 1 (1-4); INDEX LIPEMIC 1 (1-3); POTASSIUM 4.1 mEq/L (3.5-5.1); SODIUM 136 mEq/L (136-145)
[2023-09-14] MEDS ORDERED: HYDRALAZINE 20MG/ML VIAL IV ONE (03:30)
[2023-09-14 03:36] LABS: ALANINE AMINOTRANSFERASE 10 IU/L (13-61); ALBUMIN 3.6 g/dL (3.4-5.0); ASPARTATE AMINOTRANSFERASE 15 IU/L (15-37); BILIRUBIN TOTAL 0.5 mg/dL (0.1-1.0); CALCIUM 9.9 mg/dL (8.5-10.1); CARBON DIOXIDE 23 mEq/L (21-32); GLUCOSE 101 mg/dL (70-105); NT PRO B-TYPE NATRIURETIC PEP 13760 pg/mL (5-125); PROTEIN TOTAL 7.8 g/dL (6.0-8.3); UREA NITROGEN BLOOD 48 mg/dL (7-21)
[2023-09-14] MEDS ORDERED: DIPHENHYDRAMINE 25MG CAPSULE PO ONE (04:00)
[2023-09-14] MEDS ORDERED: MORPHINE SULFATE 4 MG/ML CPJ (NOT FOR IM USE) IV ONE (04:00)
[2023-09-14 04:11] LABS: DIFFERENTIAL COMMENT 1
[2023-09-14] MEDS ORDERED: NICARDIPINE 50 MG in SODIUM CHLORIDE 0.9% 230 ML IV PRN ×2 (04:15→05:00)
[2023-09-14 04:52] LABS: CREATININE 9.5 mg/dL (0.6-1.3)
[2023-09-14 04:53] LABS: TROPONIN I HIGH SENSITIVITY 268 ng/L (<54)
[2023-09-14] MEDS ORDERED: ENOXAPARIN 60MG/0.6ML SYR SUBCUT ONE (05:45)
[2023-09-14] MEDS ORDERED: CLONIDINE 0.1MG TABLET PO PRN (09:15)
[2023-09-14] MEDS ORDERED: NITROGLYCERIN OINT 1GM/INCH UDPKT TD NR (09:15)
[2023-09-14] MEDS ORDERED: DOCUSATE SODIUM 100MG CAPSULE PO PRN (09:15)
[2023-09-14] MEDS ORDERED: ACETAMINOPHEN 325MG TABLET PO PRN (09:15)
[2023-09-14] MEDS ORDERED: NITROGLYCERIN 0.4MG TABLET SL SL PRN (09:15)
[2023-09-14] MEDS ORDERED: GUAIFENESIN 200MG/10ML SUGAR FREE UDC PO PRN (09:15)
[2023-09-14] MEDS ORDERED: MAGNESIUM/ALUMINUM HYDROXIDE/SIMETHICONE 30ML UDC PO PRN (09:15)
[2023-09-14] MEDS ORDERED: DIPHENHYDRAMINE 50MG/ML VIAL IV NR (09:15)
[2023-09-14] MEDS ORDERED: IPRATROPIUM/ALBUTEROL 0.5-3(2.5)MG/3ML NEB NEB PRN (09:15)
[2023-09-14] MEDS ORDERED: ONDANSETRON HCL 4MG/2ML INJ IV PRN (09:15)
[2023-09-14] MEDS: AMLODIPINE 10MG TABLET PO SCH (09:30)
[2023-09-14] MEDS: SEVELAMER CARBONATE 800 MG TABLET PO SCH ×2 (13:29→17:16)
[2023-09-14] MEDS: ASPIRIN 325MG EC TABLET PO SCH (13:29)
[2023-09-14] MEDS: HYDRALAZINE HCL 50MG TABLET PO SCH ×2 (14:00→21:37)
[2023-09-14 15:34] LABS: T4 FREE 1.46 ng/dL (0.76-1.46); THYROID STIMULATING HORMONE 0.99 uIU/mL (0.36-3.74)
[2023-09-14] MEDS ORDERED: DIPHENHYDRAMINE 12.5MG/5ML UDC PO NR (16:30)
[2023-09-14] MEDS: ACETAMINOPHEN 325MG TABLET PO PRN (17:25)
[2023-09-14] MEDS ORDERED: FAMOTIDINE 20MG TABLET PO SCH (21:00)
[2023-09-14] MEDS: ATORVASTATIN CALCIUM 40MG TABLET PO SCH (21:37)
[2023-09-14] MEDS ORDERED: DIPHENHYDRAMINE 25MG CAPSULE PO NR (23:00)
[2023-09-15] VITALS: BP 102/54; PULSE 92; RESP 20; TEMP 96.8
[2023-09-15] MEDS: ACETAMINOPHEN 325MG TABLET PO PRN (00:33)
[2023-09-15] MEDS: ZOLPIDEM TARTRATE 5MG TABLET PO PRN ×2 (00:35→21:50)
[2023-09-15 04:00] VITALS: BP 140/88; PULSE 83; RESP 19; TEMP 96.8
[2023-09-15 04:00] LABS: BASOPHILS % 0.7 % (0.0-2.0); HEMATOCRIT. 40.1 % (36.0-48.0); HEMOGLOBIN. 12.7 g/dL (12.0-16.0); LYMPHOCYTES % 31.2 % (20.0-50.0); MEAN CORPUSCULAR HEMOGLOBIN 28.6 pg (28.0-32.0); MEAN CORPUSCULAR HGB CONC 31.7 g/dL (31.0-37.0); MEAN CORPUSCULAR VOLUME 90.2 fL (81.0-99.0); MEAN PLATELET VOLUME 7.3 fl (7.4-10.4); MONOCYTES % 8.2 % (2.0-8.0); NEUTROPHILS % 54.9 % (40.0-76.0); PLATELET 181 x1000/uL (130-400); RED BLOOD CELL COUNT 4.44 mill/uL (4.2-5.4); RED CELL DISTRIBUTION WIDTH 22.9 % (11.6-14.6); WHITE BLOOD COUNT 5.2 x1000/uL (4.5-11.0)
[2023-09-15 04:07] LABS: D-DIMER 1.22 mg/L FEU (<0.50); INR 1.6; PROTHROMBIN TIME 16.4 sec (9.6-11.0)
[2023-09-15 04:10] LABS: CHLORIDE 100 mEq/L (98-107); INDEX HEMOLYSI 1 (1-3); INDEX ICTERIC 1 (1-4); INDEX LIPEMIC 1 (1-3); POTASSIUM 4.4 mEq/L (3.5-5.1); SODIUM 136 mEq/L (136-145)
[2023-09-15 04:12] LABS: DIFFERENTIAL COMMENT 1
[2023-09-15 04:26] LABS: ALANINE AMINOTRANSFERASE 11 IU/L (13-61); ALBUMIN 3.6 g/dL (3.4-5.0); ASPARTATE AMINOTRANSFERASE 9 IU/L (15-37); BILIRUBIN TOTAL 0.5 mg/dL (0.1-1.0); CALCIUM 9.4 mg/dL (8.5-10.1); CARBON DIOXIDE 28 mEq/L (21-32); CREATINE KINASE 34 IU/L (26-192); CREATINE KINASE MB FRACTION 1.7 ng/mL (0.5-3.6); GLUCOSE 103 mg/dL (70-105); PHOSPHORUS 5.8 mg/dL (2.5-4.9); PROTEIN TOTAL 8.3 g/dL (6.0-8.3); UREA NITROGEN BLOOD 36 mg/dL (7-21)
[2023-09-15 04:37] LABS: HEPATITIS B SURFACE ANTIGEN NEGATIVE
[2023-09-15 05:04] LABS: HEPATITIS C VIR.AB 0.07 INDEXVAL (0.00-0.80)
[2023-09-15 05:05] LABS: HEPATITIS B CORE AB IGM NEGATIVE
[2023-09-15 05:06] LABS: HEPATITIS A AB IGM NEGATIVE (NEGATIVE)
[2023-09-15 05:13] LABS: CREATININE 8.1 mg/dL (0.6-1.3)
[2023-09-15 05:15] LABS: TROPONIN I HIGH SENSITIVITY 271 ng/L (<54)
[2023-09-15] MEDS: HYDRALAZINE HCL 50MG TABLET PO SCH ×3 (06:03→21:47)
[2023-09-15 08:00] VITALS: BP 133/60; PULSE 80; RESP 18; TEMP 97.7
[2023-09-15] MEDS: SEVELAMER CARBONATE 800 MG TABLET PO SCH ×3 (08:17→17:28)
[2023-09-15] MEDS: ASPIRIN 325MG EC TABLET PO SCH (08:17)
[2023-09-15] MEDS: AMLODIPINE 10MG TABLET PO SCH (08:23)
[2023-09-15 12:00] VITALS: BP 119/81; PULSE 94; RESP 20; TEMP 97.5
[2023-09-15 16:00] VITALS: BP 120/78; PULSE 86; RESP 18; TEMP 97.6
[2023-09-15] MEDS ORDERED: DIPHENHYDRAMINE 12.5MG/5ML UDC PO NR (17:00)
[2023-09-15] MEDS ORDERED: WARFARIN SODIUM 4MG TABLET PO SCH (18:00)
[2023-09-15 20:00] VITALS: BP 123/65; PULSE 82; RESP 20; TEMP 97.1
[2023-09-15] MEDS: ATORVASTATIN CALCIUM 40MG TABLET PO SCH (21:46)
[2023-09-16] VITALS (14 sets, daily range): BP systolic 92–178; BP diastolic 56–112; PULSE 72–98; RESP 16–20; TEMP 96.8–98.3; O2SAT 100
[2023-09-16] MEDS: HYDRALAZINE HCL 50MG TABLET PO SCH ×2 (06:00→14:00)
[2023-09-16 08:21] LABS: HEMATOCRIT 37.1 % (36.0-48.0); HEMOGLOBIN 11.7 g/dL (12.0-16.0); MEAN CORPUSCULAR HEMOGLOBIN 29.1 pg (28.0-32.0); MEAN CORPUSCULAR HGB CONC 31.7 g/dL (31.0-37.0); MEAN CORPUSCULAR VOLUME 91.9 fL (81.0-99.0); PLATELET 147 x1000/uL (130-400); RED BLOOD CELL COUNT 4.03 mill/uL (4.2-5.4); RED CELL DISTRIBUTION WIDTH 21.8 % (11.6-14.6); WHITE BLOOD COUNT 4.6 x1000/uL (4.5-11.0)
[2023-09-16 08:34] LABS: INR 1.4; PROTHROMBIN TIME 15.2 sec (9.6-11.0)
[2023-09-16 08:42] LABS: CHLORIDE 103 mEq/L (98-107); POTASSIUM 4.6 mEq/L (3.5-5.1); SODIUM 136 mEq/L (136-145)
[2023-09-16 08:50] LABS: CALCIUM 8.6 mg/dL (8.5-10.1); CARBON DIOXIDE 22 mEq/L (21-32); UREA NITROGEN BLOOD 48 mg/dL (7-21)
[2023-09-16] MEDS: SEVELAMER CARBONATE 800 MG TABLET PO SCH ×2 (08:55→13:10)
[2023-09-16] MEDS: ASPIRIN 325MG EC TABLET PO SCH (08:55)
[2023-09-16] MEDS: AMLODIPINE 10MG TABLET PO SCH (09:00)
[2023-09-16 09:34] LABS: CREATININE 9.2 mg/dL (0.6-1.3); GLUCOSE 55 mg/dL (70-105)
[2023-09-16] MEDS ORDERED: DIPHENHYDRAMINE 50MG/ML VIAL IV NR (13:30)
[2023-09-16] MEDS: ACETAMINOPHEN 325MG TABLET PO PRN (14:46)
== END 2023-09-16 18:00 | disposition home or self-care (01) | DRG 280 ==
LOC: ER 02:37 → EDBEDREQSVC 04:25 → 7WST 05:05 → EDBEDREQ 05:07 → EDBEDREQSVC 08:18
PROVIDERS: ADMIT Internal Medicine; ATTEND Internal Medicine
PROC: 5A1D70Z Performance of Urinary Filtration, Intermittent, Less than 6 Hours Per Day (ICD-10-PCS; principal; 2023-09-14)
PROC: 5A1D70Z Performance of Urinary Filtration, Intermittent, Less than 6 Hours Per Day (ICD-10-PCS; 2023-09-16)
DX: I13.2 Hypertensive heart and chronic kidney disease with heart failure and with stage 5 chronic kidney disease, or end stage renal disease (principal); I50.33 Acute on chronic diastolic (congestive) heart failure; I21.A1 Myocardial infarction type 2; N18.6 End stage renal disease; I16.1 Hypertensive emergency; I69.351 Hemiplegia and hemiparesis following cerebral infarction affecting right dominant side; D64.9 Anemia, unspecified; I25.10 Atherosclerotic heart disease of native coronary artery without angina pectoris; E11.22 Type 2 diabetes mellitus with diabetic chronic kidney disease; E78.5 Hyperlipidemia, unspecified; I45.10 Unspecified right bundle-branch block; Z88.6 Allergy status to analgesic agent; Z91.041 Radiographic dye allergy status; Z95.1 Presence of aortocoronary bypass graft; Z95.2 Presence of prosthetic heart valve; Z95.3 Presence of xenogenic heart valve; Z99.2 Dependence on renal dialysis; Z79.01 Long term (current) use of anticoagulants; Z79.82 Long term (current) use of aspirin; Z79.899 Other long term (current) drug therapy; Z95.5 Presence of coronary angioplasty implant and graft; Z79.4 Long term (current) use of insulin
CPT/HCPCS: 36415; 71045; 80048; 80053; 80061; 82550; 82553; 83735; 83880; 84100; 84439; 84443; 84484; 85025; 85027; 85379; 86705; 86709; 86803; 87340; 90935; 93005; 93970; 99285; J0360; J1200; J1650; J2270; Q0163